=== PATIENT | female | born 1960 | race Caucasian/White ===

== ENCOUNTER 2024-11-13 11:02 | Emergency (ER) | payer MEDICARE, MEDICAID, SELFPAY ==
[2024-11-13] VITALS (10 sets, daily range): BP systolic 113–136; BP diastolic 52–72; PULSE 82–101; RESP 13–23; TEMP 35.9; O2SAT 97–100; BMI 21.8
--- OUTSIDE RECORDS SUMMARY | 2024-11-13 11:05 | XMS_ITS | Encounter Summary ---
Author Organization [facility] Address [address] [place] [address]. [place] [address] Care Team Providers Care Protection Engineer Name Role Phone Eleni Nguyen DO Primary Care Provider [phone] Gladys Luis RN Unavailable [phone] Eleni Nguyen DO Primary Care Provider [phone] Encounter Details Date Type Department Care Team (Late st Contact Info) Description 01/09/2017 [facility] [address] [address] Nette Levy MD [address] [place] [address] Social History Tobacco Use Types Packs/Day Years Used Date Smoking Tobacco: Never Smokeless Tobacco: Never Alcohol Use Standard Drinks/Week Comments No 0 (1 standard drink = 0.6 oz pur e alcohol) Comments No Sex and Gender Information Value Date Recorded Sex Assigned at Female 04/03/2019 2:35 PM DRYWALL STRIPPER HELPER Legal Sex Female 3:28 AM DRYWALL STRIPPER HELPER Gender Identity Female 04/03/2019 2:35 PM DRYWALL STRIPPER HELPER Sexual Orientation Not on file documented as of this encounter Plan of Treatment Not on file documented as of this encounter Visit Diagnoses Not on filedocumented in this encounter Care Teams Protection Engineer Relationship Specialty Start Date End Date Eleni Nguyen DO PCP - General 02/27/14 06/20/24 Eleni Nguyen DO [address] [place] [address] PCP - General Cardiovascular Disease 06/21/24 Gladys Luis, RN Registered Nurse Otolaryngology 04/07/16 documented as of this encounter
--- OUTSIDE RECORDS SUMMARY | 2024-11-13 11:05 | XMS_ITS | Encounter Summary ---
Author Organization [facility] Address [address] [place] [address]. [place] [address] Care Team Providers Care Regional Hr Manager Name Role Phone Eleni Nguyen DO Primary Care Provider [phone] Gladys Luis RN Unavailable [phone] Eleni Nguyen DO Primary Care Provider [phone] Encounter Details Date Type Department Care Team (Late st Contact Info) Description 11/05/2016 [facility] [address] [address] Nette Levy MD [address] [place] [address] Social History Tobacco Use Types Packs/Day Years Used Date Smoking Tobacco: Never Smokeless Tobacco: Never Alcohol Use Standard Drinks/Week Comments No 0 (1 standard drink = 0.6 oz pur e alcohol) Comments No Sex and Gender Information Value Date Recorded Sex Assigned at Female 04/03/2019 2:35 PM SAMPLE TAKER OPERATOR Legal Sex Female 3:28 AM SAMPLE TAKER OPERATOR Gender Identity Female 04/03/2019 2:35 PM SAMPLE TAKER OPERATOR Sexual Orientation Not on file documented as of this encounter Plan of Treatment Not on file documented as of this encounter Visit Diagnoses Not on filedocumented in this encounter Care Teams Regional Hr Manager Relationship Specialty Start Date End Date Eleni Nguyen DO PCP - General 02/27/14 06/20/24 Eleni Nguyen DO [address] [place] [address] PCP - General Cardiovascular Disease 06/21/24 Gladys Luis, RN Registered Nurse Otolaryngology 04/07/16 documented as of this encounter
--- OUTSIDE RECORDS SUMMARY | 2024-11-13 11:05 | XMS_ITS | Encounter Summary ---
Author Organization [facility] Address [address] [place] [address] Care Team Providers Care Territory Sales Executive Name Role Phone PatrickEleni zhong DO Primary Care Provider [phone] Gladys Luis RN Unavailable [phone] Eleni Nguyen DO Primary Care Provider [phone] Encounter Details Date Type Department Care Team (Late st Contact Info) Description 11/15/2016 [facility] [address] [facility] [place] [id number] [place] [address] [place] [address] Social History Tobacco Use Types Packs/Day Years Used Date Smoking Tobacco: Never Smokeless Tobacco: Never Alcohol Use Standard Drinks/Week Comments No 0 (1 standard drink = 0.6 oz pur e alcohol) Comments No Sex and Gender Information Value Date Recorded Sex Assigned at Female 04/03/2019 2:35 PM GERIATRIC NURSE Legal Sex Female 3:28 AM GERIATRIC NURSE Gender Identity Female 04/03/2019 2:35 PM GERIATRIC NURSE Sexual Orientation Not on file documented as of this encounter Plan of Treatment Not on file documented as of this encounter Visit Diagnoses Not on filedocumented in this encounter Care Teams Territory Sales Executive Relationship Specialty Start Date End Date Eleni Nguyen DO PCP - General 02/27/14 06/20/24 Eleni Nguyen DO [address] [place] [address] [place] [address] PCP - General Cardiovascular Disease 06/21/24 Gladys Luis, RN Registered Nurse Otolaryngology 04/07/16 documented as of this encounter
--- OUTSIDE RECORDS SUMMARY | 2024-11-13 11:05 | XMS_ITS | Clinical Summary ---
Author Organization [facility] Address [address] [place] [address] Care Team Providers Care An Employee Sponsor Or Advocate And Name Role Phone Popeye Medina MD Unavailable Keo Sutton MD Unavailable Eleni Nguyen DO Primary Care Provider Shauna Eli MD Unavailable Zion Rodriguez MD Unavailable Unava Felicia Garcia Unavailable [phone] Lor Barrios DO Unavailable Allergies Active Allergy Reactions Criticality Noted Date Comments Apricot *Unknown Medium 07/25/2011 Dried Apricots Aspirin Anaphylaxis High 04/21/2008 Moxifloxacin Hives Medium 04/21/2008 Cefaclor *Unknown Unknown 04/21/2008 Chicken Derived Other - Describe In Comment Field Medium 04/04/2016 Patient states this is an error. She is not allergic to chicken Certain Brand of Chicken Only [facility] *Unknown Unknown 04/21/2008 [facility] Containing Products Itching Medium 08/21/2018 Milk *Unknown Unknown 04/21/2008 Doxycycline Hives Medium 04/21/2008 Egg *Unknown Unknown 12/28/2012 Erythromycin Hives High 04/21/2008 Erythromycin Base Hives High 08/11/2004 Fd And C Red No.22 (Eosin) *Unknown Unknown 04/04/2016 Gluten *Unknown Unknown 04/21/2008 Ibuprofen Anaphylaxis High 11/09/2010 Cephalexin Hives Medium 04/21/2008 Latex Hives Medium 03/10/2010 Lidocaine Hives High 02/12/2019 Mold Runny Nose Low 04/26/2012 Other reaction(s): sinus congestion, asthma reaction Nalbuphine Anaphylaxis High 04/21/2008 Flurbiprofen *Unknown Unknown 10/04/2003 PN: LW Reaction: eyes swell Penicillins Hives High 04/21/2008 Persic Oil *Unknown Unknown 04/04/2016 Other reaction(s): *Unknown Quinolones *Unknown Unknown 04/04/2016 D And C Red No.22 *Unknown Unknown 04/21/2008 Sulfa (Sulfonamide Antibiotics) Other - Describe In Comment Field Unknown 04/21/2008 Gatifloxacin *Unknown Unknown 04/21/2008 Cefpodoxime *Unknown Unknown 04/21/2008 Wheat Flour GI Upset Medium 04/21/2008 Gluten Medications INHALANT IMMUNOTHERAPYIndi cations:Allergic rhinitis, cause unspecified Vial a mold fip Vial b mite 2 0 04/18/19 13 Active Glutamine (L-GLUTAMINE) 500 mg tab Take 1 Tab by mouth once daily. 0 01/22/20 16 Active medication order composer DSF (destress formula0 0 01/22/20 16 Active Digestive Enzymes capsule Take 1 capsule by mouth once daily. 0 01/22/20 16 Active NALTREXONE SUSPENSION 1MG/ML Take 5 mg by mouth once daily. 01/25/20 18 Active mometasone (NASONEX) (50 mcg each actuation) nasal spray Inhale 1 [place] in the nostril(s) once daily. 12/29/19 18 Active omega-3 acid ethyl esters (LOVAZA;OMACOR) 1 gram capsule Take 2 Caps by mouth. 12/29/19 13 Active ProAir HFA 90 mcg/actuation inhalerIndication s:Mild intermittent asthma without complication (HC) INHALE 1-2 PUFFS BY MOUTH EVERY 4 HOURS IF NEEDED. 25.5 Each 01/26/20 21 Active albuterol-ipratro pium (DUONEB) (2.5-0.5 mg) in 3 mL NEBULIZATION solutionIndicatio ns:Mild intermittent asthma without complication (HC) Inhale 3 mL via a nebulizer 4 times daily if needed for Shortness of Breath 1st choice. Do not fill; just have on file 360 mL 1 03/18/20 21 Active cholecalciferol, Vitamin D3, (Vitamin D-3) 5,000 unit tab tablet Take 1 Tablet (5,000 units) by mouth once daily. 0 06/18/19 22 Active ZyrTEC 10 mg tablet Take 1 Tablet (10 mg) by mouth once daily. 0 07/08/19 23 Active albuterol (PROVENTIL) 0.083 % neb solutionIndicatio ns:Asthma, unspecified asthma severity, unspecified whether complicated, unspecified whether persistent (HC) Inhale 3 mL (2.5 mg) via a nebulizer every 4 hours if needed for Shortness of Breath 1st choice. 360 mL 11 08/12/19 23 Active lancetsIndication s:Controlled type 2 diabetes mellitus without complication, without long-term current use of insulin (HC) Dispense item covered by pt ins. E11.9 NIDDM type II - Test 1 time/day. accucheck fastclix lancets 100 Each 3 09/05/19 23 Active ondansetron (ZOFRAN ODT) 4 mg disintegrating tabletIndications :Nausea Place 1 Tablet (4 mg) on the tongue every 8 hours if needed for Nausea/Vomiting. 20 Tablet 03/20/20 23 Active Ozempic 2 mg/dose (8 mg/3 mL) subcutaneous pen Inject 2 mg subcutaneous once weekly. 01/23/20 24 Active albuterol HFA (PRO-AIR; VENTOLIN; PROVENTIL) 90 mcg/actuation inhalerIndication s:Mild intermittent asthma without complication (HC) INHALE 2 PUFFS BY MOUTH FOUR TIMES DAILY NEEDED FOR SHORTNESS OF BREATH 76.5 g 2 05/16/19 25 Active blood sugar diagnostic (Accu-Chek Milagros Plus test strp) stripIndications: Controlled type 2 diabetes mellitus without complication, without long-term current use of insulin (HC),Prediabetes DIRECTED TO TEST BLOOD GLUCOSE ONCE DAILY 100 Each 3 06/26/19 25 Active EPINEPHrine (EpiPen 2-Jamey) 0.3 mg/0.3 mL auto-injectorIndi cations:Anaphylax is, sequela Inject 0.3 mg intramuscular one time if needed for Allergic Reaction. Mylan brand only. 2 Each 1 09/12/19 25 Active fluticasone propion-salmetero L (Advair HFA) 115-21 mcg/actuation inhalerIndication s:Moderate persistent asthma without complication (HC) Inhale 2 Puffs by mouth two times daily. 3 Each 3 09/12/19 25 Active LORazepam 0.5 mg tabIndications:An xiety Take 1 Tablet (0.5 mg) by mouth every 4 hours if needed for Anxiety. 30 Tablet 1 09/12/19 25 Active Tirosint 50 mcg capIndications:Ac quired hypothyroidism Take 1 tab oral on tuesdays and , Saturdays and Sundays. 48 Capsule 4 09/15/19 25 Active liothyronine 25 mcg tabletIndications :Acquired hypothyroidism TAKE 1/2 TABLET(12.5 MCG) BY MOUTH EVERY DAY 45 Tablet 09/25/19 25 Active Tirosint 75 mcg capIndications:Ac quired hypothyroidism Take 1 tab Mondays, Wednesdays,and Fridays 36 Capsule 3 10/30/19 25 Active Blood-Glucose Meter (Accu-Chek Milagros Plus Meter)Indications :Controlled type 2 diabetes mellitus without complication, without long-term current use of insulin (HC) Dispense glucose meter, test strips and lancets covered by the patient insurance. Test 1 times per day. 1 Each 11/10/19 25 Active Blood-Glucose Meter (Accu-Chek Milagros Plus Meter)Indications :Controlled type 2 diabetes mellitus without complication, without long-term current use of insulin (HC) Dispense glucose meter, test strips and lancets covered by the patient insurance. Test 1 times per day. 1 Each 09/05/19 23 025 Discontin ued(Reord er (E-cancel not sent)) Tirosint 75 mcg capIndications:Ac quired hypothyroidism Take 1 tab Mondays, Wednesdays,and Fridays 36 Capsule 4 09/15/19 25 025 Discontin ued(*Avai lability/ Formulary change/Co st of medicatio n) Active Problems Problem Noted Date Diagnosed Date Iron deficiency anemia 10/10/2024 COVID-19 virus infection 07/12/2021 Overview (07/12/2021): Dec 2020 Environmental allergies 08/20/2020 Irritable bowel syndrome with constipation 08/20 Chronic left shoulder pain 05/18/2020 Type 2 diabetes mellitus wit hout complication, without long-term current use of insulin 05/18/2020 Elevated uric acid in blood 04/22/2019 Fluid retention 09/27/2018 Chronic sinusitis 05/08/2018 Overview (12/07/2018): Overview: Added automatically from request for surgery [id number] Nasal polyp 05/08/2018 Overview (12/07/2018): Overview: Added automatically from request for surgery [id number] Infiltrate of lung present on imaging of chest 0 11/23/2015 Anxiety 11/25/2014 Leukopenia 08/27/2013 Acquired hypothyroidism 08/18/2008 Overview (09/17/2020): 06/2008 IMPAIRED INTESTINAL ABSORPTION 04/23/2008 Overview (06/05/2009): EGD 05/2008 reflux changes on biopsy Hiatal hernia 04/23/2008 ADHD (attention deficit hyperactivity disorder) 04/23/2008 Overview (06/30/2009): Updated by system to replace inactive record Asthma 11/05/2003 Uncomplicated asthma 10/08/2003 Aspirin intolerance Resolved Problems Problem Noted Date Diagnosed Date Resolved Date Acute hypoxemic respiratory failure 01/05/2021 05/06/2021 Pneumonia due to COVID-19 virus 01/05/2021 05/06/2021 COVID-19 virus infection 12/30/2020 Overview (12/30/2020): Dec 2020 Chronic cholecystitis 01/27/20202020 Leg pain, bilateral 04/22/2019 09/18/19 21 Diabetes type 2, controlled 12/28/2012 04/30/2019 Asthma with acute exacerbation 11/09/2010 08/16/2013 Borderline personality disorder 04/23/2008 03/10/2015 Thrush 04/23/2008 07/07/2008 Encounters Date Type Department Care Team Description 11/13/2024 Telephone [facility] [address] [place] [address] Eleni Nguyen, Form (diabetic standard written order) 11/05/2024 9:51 AM CDT - 11/05/2024 11:52 AM CDT Emergency [facility] [address] [place] [address] Brett Colon MD Palpitations (Primary Dx); Anemia, unspecified type; Hypoglycemia Discharge Disposition: Home Self Care 11/05/2024 Travel 10/27/2024 Refill [facility] [address] [place] [address] Shauna Eli MD Refill Request (Tirosint) 10/24/2024 11:30 AM CDT Office Visit [facility] [address] [place] [address] Shauna Eli MD Anxiety 10/24/2024 9:00 AM CDT - 10/24/2024 11:59 PM CDT Hospital Encounter [facility] [address] [place] [address] Iron deficiency anemia, unspecified iron deficiency anemia type (Primary Dx) 10/24/2024 Travel 10/22/2024 10:00 AM CDT - 10/22/2024 11:59 PM CDT Hospital Encounter [facility] [address] [place] [address] Iron deficiency anemia, unspecified iron deficiency anemia type (Primary Dx) 10/21/2024 Travel 10/16/[address] [facility] [address] [place] [address] [facility] Cancer Appointment 10/09/2024 1:40 PM CDT Office Visit [facility] [address] [place] [address] Chun Maier MD Hospital F/U (DOD 10/03/24 ) 10/09/[address] [place] [address] Eleni Nguyen DO Results (Low iron ) 10/09/2024 Travel 10/03/2024 2:31 PM CDT - 10/03/2024 4:32 PM CDT Emergency [facility] [address] [facility] [address] Deniz Pinto PA Low serum iron (Primary Dx); Iron deficiency anemia, unspecified iron deficiency anemia type Discharge Disposition: Home Self Care 10/03/2024 Travel 10/01/2024 Travel 09/30/2024 Orders Only [facility] [address] [place] [address] [address] [place] [address] Eleni Nguyen DO Lab 09/30/2024 Orders Only [facility] [address] [place] [address] Shauna Eli MD <No scans attached> 09/23/2024 Refill [facility] [address] [place] [address] Shauna Eli MD Refill Request (Liothyronine) 09/16/2024 Telephone [facility] [address] [place] [address] Eleni Nguyen DO Results 09/12/2024 11:30 AM CDT Office Visit [facility] [address] [place] [address] Shauna Eli MD Anxiety 09/11/2024 10:50 AM CDT Office Visit [facility] [address] [place] [address] Eleni Nguyen DO Diabetes; Medicare ANNUAL (subsequent) Visit 09/11/2024 Travel 09/09/2024 Travel 08/26/2024 Refill [facility] [address] [place] [address] Shauna Eli MD Refill Request (Liothyronine) from Last 3 Months Immunizations Immunization Administration Dates Next Due Hepatitis B, Unspecified 03/08/1999 Influenza, IIV3 (Age >=3 years) 02/22/20 05,02/02/2004,02/13/2003,01/26/20 02,02/14/2001,02/15/2000,02/15/1999 Influenza, IIV4 12/26/2015,01/15/2015 Tdap 08/17/2023,01/02/2012 Zoster (Shingrix-RZV, recombinant) 10/18/2019 Zoster (Zostavax-ZVL, live) 02/20/2017 Family History Medical History Relation Name Comments Good Health Brother Cancer-prostate Father Dementia Father Diabetes Father Other Father Diabetes Maternal Aunt 1 Diabetes Maternal Aunt 2 Unknown Maternal Grandfather Brain Aneurysm Maternal Grandmother Unknown Maternal Uncle 1 Unknown Maternal Uncle 2 Cancer-colon Mother Diabetes Mother Hyperlipidemia Mother Hypertension Mother Unknown Paternal Aunt estranged - un kown medical history Cervical cancer Paternal Grandfather Unknown Paternal Grandmother Relation Name Status Comments Brother Alive Father Maternal Aunt 1 Maternal Aunt 2 Maternal Grandfather Maternal Grandmother Maternal Uncle 1 Maternal Uncle 2 Mother Paternal Aunt Alive Paternal Grandfather Paternal Grandmother Social History Tobacco Use Types Packs/Day Years Used Date Smoking Tobacco: Never Smokeless Tobacco: Never Tobacco Cessation:Counseling Given: Yes Comments:Previously exposed to former 's smoke. in 1995. Alcohol Use Standard Drinks/Week Comments Never 0 (1 standard drink = 0.6 oz pur e alcohol) PHQ-2 Answer Date Recorded PHQ-2 TOTAL SCORE 0 09/11/2024 Social Connections Answer Date Recorded Frequency of Communication with Friends and Fami ly 0 07/05/2022 Financial Resource Strain Answer Date R ecorded Difficulty of Paying Living Expenses 3 07/05/2022 Difficulty of Paying Living Expenses Not on file 07/05/2022 Food Insecurity Answer Date Recorded Worried About Running Out of Food in the Last Ye ar 1 07/05/2022 Transportation Needs Answer Date Record ed Lack of Transportation (Medical) 1 07/05/2022 Housing Stability Answer Date Recorded Unable to Pay for Housing in the Last Year 1 07/05/2022 Interpersonal Safety Answer Date Record ed Are you being hit, kicked, p ushed or yelled at (see row info)? 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 Gender Identity Not on file Sexual Orientation Not on file Occupation Industry Job Start Date Job End Date DISABLED 04/17/2000 Not on file Not on file Not on fi le Obstetrics History Para Term AB IAB SAB Ectopic Multiple Livin g Live Births 0 0 0 0 0 0 0 0 0 0 Last Filed Vital Signs Vital Sign Reading Time Taken Comments Blood Pressure 130/69 11/05/2024 11:30 AM CDT Pulse 82 11/05/2024 11:30 AM CDT Temperature 36.6 C (97.9 F) 11/05/2024 9:55 AM CDT Respiratory Rate 16 11/05/2024 11:30 AM CDT Oxygen Saturation 99% 11/05/2024 11:30 AM CDT Inhaled Oxygen Concentration - - Weight 56.7 kg (125 lb) 11/05/2024 9:55 AM CDT Height 160 cm (5' 3) 11/05/2024 9:55 AM CDT Body Mass Index 22.14 11/05/2024 9:55 AM CDT Plan of Treatment Upcoming Encounters Date Type Department Care Team (Late st Contact Info) Description 11/28/2024 11:30 AM CDT Office Visit [facility] [address] [facility] [place] [address] Shauna Eli MD [address] [facility] [place] [address] 12/23/2024 11:00 AM CDT Orders Only [address] [place] [address] [facility] 01/02/2025 11:30 AM CDT Office Visit [facility] [address] [facility] [place] [address] Shauna Eli MD [address] [place] [address] 09/15/2025 10:50 AM CDT Office Visit [facility] [address] [place] [address] Eleni Nguyen DO [address] [place] [address] Health Maintenance Due Date Last Done Comments HIV for age 15-65 1977 Pneumococcal series for age 50+ (1 of 2 - PCV) 1981 Hepatitis B series for 19+ ( 2 of 3 - 19+ 3-dose series) 04/05/1999 03/08/1999 RSV vaccine for adults or (1 - Risk 60-74 years 1-dose series) 2022 COVID-19 vaccine series ( season) 2023 Influenza Vaccine (#1) 2024 6, 01/15/2015, 02/21/2005, Additional history exists Mammogram for age 45-75 06/21/2025 06/22/19, 06/09/2023, 05/27/2021 (Verified in Care Everywhere or Patient Record), Additional history exists BMI (ht and wt on same day) for age 18+ 09/11/2025 09/11/2024, 08/14/2023, 03/20/2023, Additional history exists Depression screening for age 12+ 09/11/2025 09/11/2024, 08/16/2023, 08/16/2023, Additional history exists Fecal testing non-DNA (FIT,FOBT,iFOBT) for age 45-75 09/25/2025 09/25/2024, 08/17/2023, 07/29/2021, Additional history exists Lipids for age 45-75 09/11/2029 09/11/2024, 08/14/2023, 08/11/2022, Additional history exists Tetanus booster 08/16/2033 08/17/2023, 01/02/2012 Hepatitis C screening for ag e 18-79 Completed 01/22/2016 Medical Devices Implanted Type Area Animal Caretaker Supervisor Device Identifier Shelf Expiration Date Model / Serial / Lot Spacer Stratus Frontal Microflow - [id number] Implanted:Qty: 2 on 01/05/2012 by Keo Sutton MD at [facility] Right: Nose ACCLARENT 05/18/2013 [id number] / / [id number] Description:implanted into r ight frontal Procedures Procedure Name Priority Date/Time Associated Diagnosis Comments GLUCOSE METER Routine 11/05/2024 11:44 AM CDT TYPE & SCREEN STAT 11/05/2024 10:32 AM CDT RED CELL MORPHOLOGY STAT 11/05/2024 1 0:32 AM CDT PLATELET ESTIMATE STAT 11/05/2024 10: 32 AM CDT CBC WITH AUTO DIFFERENTIAL STAT 11/05/2024 10:32 AM CDT TSH WITH REFLEX STAT 11/05/2024 10:32 AM CDT MAGNESIUM STAT 11/05/2024 10:32 AM CDT BASIC METABOLIC PANEL STAT 11/05/2024 10:32 AM CDT CBC WITH AUTO DIFFERENTIAL STAT 11/05/2024 10:32 AM CDT EKG 12 LEAD STAT 11/05/2024 9:57 AM CDT TYPE & SCREEN STAT 10/03/2024 2:45 PM CDT CWS PATH REVIEW HEMATOLOGY STAT 10/03/2024 2:45 PM CDT RED CELL MORPHOLOGY STAT 10/03/2024 2 :45 PM CDT PLATELET ESTIMATE STAT 10/03/2024 2:4 5 PM CDT BASIC METABOLIC PANEL STAT 10/03/2024 2:45 PM CDT HEMOGLOBIN STAT 10/03/2024 2:45 PM CDT HEPATIC FUNCTION PANEL Routine 10/01/2024 12:43 PM CDT Elevated liver enzymes FERRITIN Routine 10/01/2024 12:43 PM CDT Elevated liver enzymes Anemia of unknown etiology IRON PLUS IRON BINDING CAP Routine 10/01/2024 12:43 PM CDT Anemia of unknown etiology CBC WITH AUTO DIFFERENTIAL Routine 10/01/2024 12:43 PM CDT Anemia of unknown etiology OCCULT BLOOD IFOBT STOOL Routine 09/25/2024 12:00 PM CDT Screening for colon cancer URINE ALBUMIN TO CREATININE RATIO, RANDOM Routine 09/11/2024 12:12 PM CDT Controlled type 2 diabetes mellitus without complication, without long-term current use of insulin (HC) T4,FREE Routine 09/11/2024 11:20 AM CDT TSH WITH REFLEX Routine 09/11/2024 11:20 AM CDT Controlled type 2 diabetes mellitus without complication, without long-term current use of insulin (HC) LIPID PANEL W REFLEX MEASURED LDL Routine 09/11/2024 11:20 AM CDT Controlled type 2 diabetes mellitus without complication, without long-term current use of insulin (HC) CBC WITH AUTO DIFFERENTIAL Routine 09/11/2024 11:20 AM CDT Controlled type 2 diabetes mellitus without complication, without long-term current use of insulin (HC) COMP METABOLIC PANEL Routine 09/11/2024 11:20 AM CDT Controlled type 2 diabetes mellitus without complication, without long-term current use of insulin (HC) HEMOGLOBIN A1C MONITORING (POCT) STAT 09/11/2024 11:18 AM CDT Controlled type 2 diabetes mellitus without complication, without long-term current use of insulin (HC) SCAN-MAMMOGRAPHY REPORT 06/21/2024 12:00 AM VENTURE CAPITAL ANALYST ANTI HCV Routine 01/22/2016 11:28 AM CDT Need for hepatitis C screening test from Last 3 Months or Most Recently Relevant to Health Maintenance Results * (ABNORMAL) GLUCOSE METER (11/05/2024 11:44 AM CDT) [facility] GLUCOSE METER 113(H) 65 - 100 mg/dL 11/05/2024 11:44 AM T [facility] Blood BLOOD SPECIMEN / Unknown 11/05/2024 11:44 AM CDT 11/05/2024 11:44 AM CDT us Brett Colon MD CHEMISTRY Fin al Result [facility] [address] [place] [address] * (ABNORMAL) CBC WITH AUTO DIFFERENTIAL (11/05/2024 10:32 AM CDT) [facility] WHITE BLOOD COUNT 6.9 4.5 - 11.0 thou/cu mm 11/05/2024 11:22 AM [facility] RED BLOOD COUNT 4.78 4.00 - 5.20 mil/cu mm 11/05/2024 11:22 AM [facility] HEMOGLOBIN 10.3(L) 12.0 - 16.0 g/dL 11/05/2024 11:22 AM [facility] HEMATOCRIT 34.8 33.0 - 51.0 % 11/05/2024 11:22 AM [facility] MCV 73(L) 80 - 100 fL 11/05/2024 11:22 AM [facility] MCH 21.5(L) 26.0 - 34.0 pg 11/05/2024 11:22 AM [facility] MCHC 29.6(L) 32.0 - 36.0 g/dL 11/05/2024 11:22 AM [facility] RDW 11/05/2024 11:22 AM [facility] Comment:Unable to be determi carlton PLATELET COUNT 288 140 - 440 thou/cu mm 11/05/2024 11:22 AM [facility] MPV 9.1 6.5 - 11.0 fL 11/05/2024 11:22 AM [facility] % NEUT 78.5 % 11/05/2024 11:22 AM [facility] % LYMPH 14.5 % 11/05/2024 11:22 AM [facility] % MONO 6.3 % 11/05/2024 11:22 AM [facility] % EOS 0.3 % 11/05/2024 11:22 AM [facility] % BASO 0.4 % 11/05/2024 11:22 AM [facility] ABSOLUTE NEUTROPHILS 5.4 1.7 - 7.0 thou/cu mm 11/05/2024 11:22 AM [facility] ABSOLUTE LYMPHOCYTES 1.0 0.9 - 2.9 thou/cu mm 11/05/2024 11:22 AM [facility] ABSOLUTE MONOCYTES 0.4 <0.9 thou/cu mm 11/05/2024 11:22 AM [facility] ABSOLUTE EOSINOPHILS 0.0 <0.5 thou/cu mm 11/05/2024 11:22 AM [facility] ABSOLUTE BASOPHILS 0.0 <0.3 thou/cu mm 11/05/2024 11:22 AM [facility] Blood BLOOD SPECIMEN / Unknown IV Start / Unknown 11/05/2024 10:32 AM CDT 11/05/2024 10:37 AM [facility] us Brett Colon MD HEMATOLOGY Fin al Result [facility] [address] [place] [address] * (ABNORMAL) RED CELL MORPHOLOGY (11/05/2024 10:32 AM CDT) Only the most recent of2 resultswithin the time period is included. [facility] ELLIPTOCYTES Many 11/05/2024 11:22 AM CDT [facility] SCHISTOCYTES Few 11/05/2024 11:22 AM CDT [facility] TARGET CELLS Few 11/05/2024 11:22 AM CDT [facility] RBC COMMENT Present(A ) RBC morphology appears normal, RBC morphology within normal limits for newborns. 11/05/2024 11:22 AM CDT [facility] Blood BLOOD SPECIMEN / Unknown IV Start / Unknown 11/05/2024 10:32 AM CDT 11/05/2024 10:37 AM CDT Brett Colon MD HEMATOLOGY Fin al Result [facility] [address] [place] [address] * PLATELET ESTIMATE (11/05/2024 10:32 AM CDT) Only the most recent of2 resultswithin the time period is included. [facility] PLATELET ESTIMATE Adequate Adequate, No estimate 11/05/2024 11:22 AM CDT [facility] Blood BLOOD SPECIMEN / Unknown IV Start / Unknown 11/05/2024 10:32 AM CDT 11/05/2024 10:37 AM CDT Brett Colon MD HEMATOLOGY Fin al Result [facility] [address] [place] [address] * TSH WITH REFLEX (11/05/2024 10:32 AM CDT) Only the most recent of2 resultswithin the time period is included. TSH 0.35 0.27 - 4.20 uIU/mL 11/05/2024 11:06 AM CDT [facility] Blood BLOOD SPECIMEN / Unknown IV Start / Unknown 11/05/2024 10:32 AM CDT 11/05/2024 10:37 AM CDT Narrative [facility] - 11/05/2024 11:06 AM CDT In Adults, TSH values between 5.00 and 10.00 uIU/ml do not necessarily indicate the presence of Hypothyroidism. Correlation with clinical findings such as presence of goiter and/or Thyroperoxidase (TPO) Antibody may be helpful. For more information please refer to PJ 2004; 291: 228-238. Brett Colon MD CHEMISTRY Fin al Result Performing Organization Address City/[facility] Co de Phone Number [facility] [address] [place] [address] * TYPE AND SCREEN ONLY (11/05/2024 10:32 AM CDT) Only the most recent of2 resultswithin the time period is included. ABORH A Rh Positive 11/05/2024 11:07 AM CDT [facility] BLOOD BANK ANTIBODY SCREEN Negative Negative 11/05/2024 11:07 AM CDT [facility] BLOOD BANK SPECIMEN EXPIRATION DATE/TIME 11/08/24 23:59 11/05/2024 11:07 AM CDT [facility] BLOOD BANK Blood BLOOD SPECIMEN / Unknown IV Start / Unknown 11/05/2024 10:32 AM CDT 11/05/2024 10:37 AM CDT Brett Colon MD BLOOD BANK Fin al Result Performing Organization Address City/[facility]/ZIP Co de Phone Number [facility] BLOOD BANK [address] [place] [address] * MAGNESIUM (11/05/2024 10:32 AM CDT) MAGNESIUM 2.0 1.6 - 2.4 mg/dL 11/05/2024 11:06 AM [facility] Blood BLOOD SPECIMEN / Unknown IV Start / Unknown 11/05/2024 10:32 AM CDT 11/05/2024 10:37 AM CDT us Brett Colon MD CHEMISTRY Fin al Result [facility] [address] [place] [address] * (ABNORMAL) BASIC METABOLIC PANEL (11/05/2024 10:32 AM CDT) Only the most recent of2 resultswithin the time period is included. SODIUM 145 136 - 145 mmol/L 11/05/2024 11:10 AM [facility] POTASSIUM 3.6 3.5 - 5.1 mmol/L 11/05/2024 11:10 AM [facility] CHLORIDE 107 98 - 107 mmol/L 11/05/2024 11:10 AM [facility] CO2,TOTAL 25 22 - 29 mmol/L 11/05/2024 11:10 AM [facility] ANION GAP 13 5 - 18 11/05/2024 11:10 AM [facility] GLUCOSE 51(LL) 70 - 99 mg/dL 11/05/2024 11:10 AM [facility] CALCIUM 9.3 8.8 - 10.4 mg/dL 11/05/2024 11:10 AM [facility] Comment: Reference ranges for this test were updated on 02/20/2024 to reflect our healthy population more accurately. Reference range changes are not retroactively applied to results, but previous results using the same methodology can be interpreted in the context of the new reference range. BUN 14 8 - 23 mg/dL 11/05/2024 11:10 AM [facility] CREATININE 0.72 0.50 - 0.90 mg/dL 11/05/2024 11:10 AM [facility] BUN/CREAT RATIO 19 10 - 20 11:10 AM [facility] eGFR >90 >90 mL/min/1. 73m2 11/05/2024 11:10 AM CDT [facility] Comment:As of 2021, eG FR is calculated by the CKD-EPI creatinine equation without race adjustment. eGFR can be influenced by muscle mass, exercise, and diet. The reported eGFR is an estimation only and is only applicable if the renal function is stable. Blood BLOOD SPECIMEN / Unknown IV Start / Unknown 11/05/2024 10:32 AM CDT 11/05/2024 10:37 AM CDT Brett Colon MD CHEMISTRY Fin al Result Performing Organization Address City/[facility]/ZIP Co de Phone Number [facility] [address] [place] [address] * EKG 12 LEAD (11/05/2024 9:57 AM CDT) Interpretation Normal sinus rhythm Normal ECG When compared with ECG of 05-Jan-2021 14:28, No significant change was found no significant change from 01/05/21 [facility] Ventricular Rate 87 BPM [facility] NOW Atrial Rate 87 BPM [facility] NOW P-R Interval 132 ms [facility] NOW QRS Duration 84 ms [facility] NOW QT 376 ms [facility] NOW QTc 452 ms [facility] NOW P Logan 64 degrees BEYOND NOW R Logan 51 degrees BEYOND NOW T Logan 6 degrees BEYOND NOW 11/05/2024 9:57 AM CDT 11/05/2024 11:04 AM CDT Brett Colon MD EKG ORD Fin al Result [facility] [place], [place] * CWS PATH REVIEW HEMATOLOGY (10/03/2024 2:45 PM CDT) PATH COMMENT Reviewed by BB on 10/06/2024 10/06/2024 11:12 AM CDT [facility] Blood BLOOD SPECIMEN / Unknown IV Start / Unknown 10/03/2024 2:45 PM CDT 10/03/2024 2:54 PM CDT [facility]OR[facility] Fin al Result Performing Organization Address City/[facility]/ZIP Co de Phone Number [facility] [address] [place] [address], * (ABNORMAL) HEMOGLOBIN (10/03/2024 2:45 PM CDT) HEMOGLOBIN 7.1(L) 12.0 - 16.0 g/dL 10/03/2024 3:28 PM CDT [facility] MCV 64(L) 80 - 100 fL 10/03/2024 3:28 PM CDT [facility] Blood BLOOD SPECIMEN / Unknown IV Start / Unknown 10/03/2024 2:45 PM CDT 10/03/2024 2:54 PM CDT Deniz ROMERO HEMATOLOGY Fin al Result Performing Organization Address [facility]/ZIP Co de Phone Number [facility] [address] [place] [address] * (ABNORMAL) IRON PLUS IRON BINDING CAP (10/01/2024 12:43 PM CDT) IRON, TOTAL 18(L) 45 - 160 mcg/dL [facility] IRON BINDING CAPACITY 445 250 - 450 mcg/dL (calc) [facility] % SATURATION 4(L) 16 - 45 % (calc) [facility] Blood BLOOD SPECIMEN / Unknown 10/01/2024 12:43 PM CDT 10/01/2024 12:44 PM CDT Narrative [facility] - 10/02/2024 6:59 AM CDT FASTING:NO FASTING: NO Eleni Nguyen DO CHEMISTRY Final Result Performing Organization Address City/[facility]/ZIP Co de Phone Number [employer] [facility] [address] [place] [address], [employer] [facility] [address] [place] [address] * (ABNORMAL) CBC AND DIFFERENTIAL (10/01/2024 12:43 PM CDT) Only the most recent of2 resultswithin the time period is included. WHITE BLOOD CELL COUNT 4.4 3.8 - 10.8 Thousand/u L [facility] RED BLOOD CELL COUNT 3.77(L) 3.80 - 5.10 Million/uL [facility] HEMOGLOBIN 6.9(L) 11.7 - 15.5 g/dL [facility] Comment: Verified by repeat analysis. HEMATOCRIT 25.8(L) 35.0 - 45.0 % [facility] MCV 68.4(L) 80.0 - 100.0 fL [facility] MCH 18.3(L) 27.0 - 33.0 pg [facility] MCHC 26.7(L) 32.0 - 36.0 g/dL [facility] Comment: For adults, a slight decrease in the calculated MCHC value (in the range of 30 to 32 g/dL) is most likely not clinically significant; however, it should be interpreted with caution in correlation with other red cell parameters and the patient's clinical condition. RDW 16.6(H) 11.0 - 15.0 % [facility] PLATELET COUNT 421(H) 140 - 400 Thousand/u L [facility] MPV 9.4 7.5 - 12.5 fL [facility] ABSOLUTE NEUTROPHILS 2,873 1,500 - 7,800 cells/uL [facility] ABSOLUTE LYMPHOCYTES 1,144 850 - 3,900 cells/uL [facility] ABSOLUTE MONOCYTES 312 200 - 950 cells/uL [facility] ABSOLUTE EOSINOPHILS 31 15 - 500 cells/uL [facility] ABSOLUTE BASOPHILS 40 0 - 200 cells/uL [facility] NEUTROPHILS 65.3 % [facility] LYMPHOCYTES 26.0 % [facility] MONOCYTES 7.1 % [facility] EOSINOPHILS 0.7 % [facility] BASOPHILS 0.9 % [facility] CBC (INCLUDES DIFF/PLT) COMMENTS [facility] Comment: Review of peripheral smear confirms automated results. Blood BLOOD SPECIMEN / Unknown 10/01/2024 12:43 PM CDT 10/01/2024 12:44 PM CDT Narrative [facility] - 10/02/2024 6:59 AM CDT FASTING:NO FASTING: NO Eleni Nguyen DO HEMATOLOGY Final Result [facility] [address] [place] [address], [place] [phone] [facility] [address] [place] [address] * (ABNORMAL) FERRITIN (10/01/2024 12:43 PM CDT) Pathologist [facility] FERRITIN 1(L) 16 - 288 ng/mL [facility] Blood BLOOD SPECIMEN / Unknown 10/01/2024 12:43 PM CDT 10/01/2024 12:44 PM CDT Narrative [facility] - 10/02/2024 6:59 AM CDT FASTING:NO FASTING: NO us Eleni Nguyen DO CHEMISTRY Final Result [facility] [address] [place] [address], [place] [phone] [facility] [address] [place] [address] * (ABNORMAL) LIVER PANEL (HEPATIC FUNCTION PANEL) (10/01/2024 12:43 PM CDT) Pathologist [facility] PROTEIN, TOTAL 5.9(L) 6.1 - 8.1 g/dL [facility] ALBUMIN 4.0 3.6 - 5.1 g/dL [facility] GLOBULIN 1.9 1.9 - 3.7 g/dL (calc) [facility] ALBUMIN/GLOBULIN RATIO 2.1 1.0 - 2.5 (calc) [facility] BILIRUBIN, TOTAL 0.8 0.2 - 1.2 mg/dL [facility] BILIRUBIN, DIRECT 0.1 < OR = 0.2 mg/dL [facility] BILIRUBIN, INDIRECT 0.7 0.2 - 1.2 mg/dL (calc) [facility] ALKALINE PHOSPHATASE 96 37 - 153 U/L [facility] AST 25 10 - 35 U/L [facility] ALT 27 6 - 29 U/L [facility] Blood BLOOD SPECIMEN / Unknown 10/01/2024 12:43 PM CDT 10/01/2024 12:44 PM CDT Narrative [facility] - 10/02/2024 6:59 AM CDT FASTING:NO FASTING: NO Eleni Nguyen DO CHEMISTRY Final Result [facility] [employer] [facility] [address] [place] [address], [facility] [address] [place] [id number] * OCCULT BLOOD IFOBT STOOL (09/25/2024 12:00 PM CDT) [facility] Signature STOOL BLOOD ,IFOBT Negative Negative 10/02/2024 3:26 PM CDT [facility] Stool STOOL SPECIMEN / Unknown Non-Blood / Unknown 09/25/2024 12:00 PM CDT 09/30/2024 9:30 PM CDT Shauna Eli MD LABORATORY Final Result [facility] [address] [place] [address], * URINE ALBUMIN TO CREATININE RATIO, RANDOM (09/11/2024 12:12 PM CDT) ALB RAND URINE <12.0 mg/L 09/11/2024 11:15 PM CDT [facility] CREATININE,URINE 1.93 g/L 09/12/19 11:15 PM CDT [facility] ALBUMIN TO CREATININE RATIO,RAND UR 09/11/2024 11:15 PM CDT [facility] Comment:Urine Albumin below measurement range, unable to calculate. Urine URINE SPECIMEN / Unknown Non-Blood / Unknown 09/11/2024 12:12 PM CDT 09/11/2024 12:12 PM CDT Narrative [facility] - 09/11/2024 11:15 PM CDT If Albumin to Creatinine Ratio is elevated, consider the following: Elevations seen with incipient nephropathy associated with diabetes mellitus or hypertension. Stress, exercise,hematuria, and urinary tract infection may also produce elevated results. If clinically indicated, confirm with 24 Hour Albumin to Creatinine Ratio. us Eleni Nguyen DO URINE Final Result [facility] [address] [place] [address], * (ABNORMAL) LIPID PANEL W REFLEX MEASURED LDL (09/11/2024 11:20 AM CDT) CHOLESTEROL, TOTAL 173 <200 mg/dL [facility] HDL CHOLESTEROL 51 > OR = 50 mg/dL [facility] TRIGLYCERIDES 71 <150 mg/dL [facility] LDL-CHOLESTEROL 106(H) mg/dL (calc) [facility] Comment: Reference range: <100 Desirable range <100 mg/dL for primary prevention; <70 mg/dL for patients with CHD or diabetic patients with > or = 2 CHD risk factors. LDL-C is now calculated using the Lena calculation, which is a validated novel method providing better accuracy than the Friedewald equation in the estimation of LDL-C. Roman FRANK et al. PJ. 2013;310(19): 7623-4741 (http://education.Getui/faq/NZW642) CHOL/HDLC RATIO 3.4 <5.0 (calc) [facility] NON HDL CHOLESTEROL 122 <130 mg/dL (calc) [facility] Comment: For patients with diabetes plus 1 major ASCVD risk factor, treating to a non-HDL-C goal of <100 mg/dL (LDL-C of <70 mg/dL) is considered a therapeutic option. Blood BLOOD SPECIMEN / Unknown 09/11/2024 11:20 AM CDT 09/11/2024 11:20 AM CDT Narrative [facility] - 09/12/2024 3:07 AM CDT FASTING:YES FASTING: YES us Eleni Nguyen DO CHEMISTRY Final Result Performing Organization Address [facility] Co de Phone Number [employer] [place] [address] [place] [address], [facility] [address] [place] [address] * T4,FREE (09/11/2024 11:20 AM CDT) Pathologist [facility] T4, FREE 1.0 0.8 - 1.8 ng/dL [facility] 09/11/2024 11:2 0 AM CDT 09/11/2024 11:20 AM CDT Narrative [facility] - 09/12/2024 6:34 AM CDT FASTING:YES FASTING: YES us Eleni Nguyen DO CHEMISTRY Final Result Performing Organization Address [facility]/ZIP Co de Phone Number [employer] [facility] [address] [place] [address], [facility] [address] [place] [address] * (ABNORMAL) COMP METABOLIC PANEL (09/11/2024 11:20 AM CDT) GLUCOSE 88 65 - 99 mg/dL [facility] Comment: Fasting reference interval UREA NITROGEN (BUN) 15 7 - 25 mg/dL [facility] CREATININE 0.70 0.50 - 1.05 mg/dL [facility] EGFR 98 > OR = 60 mL/min/1. 73m2 [facility] BUN/CREATININE RATIO SEE NOTE: 6 - 22 (calc) [facility] Comment: Not Reported: BUN and Creatinine are within reference range. SODIUM 141 135 - 146 mmol/L [facility] POTASSIUM 4.9 3.5 - 5.3 mmol/L [facility] CHLORIDE 105 98 - 110 mmol/L [facility] CARBON DIOXIDE 28 20 - 32 mmol/L [facility] CALCIUM 9.1 8.6 - 10.4 mg/dL [facility] PROTEIN, TOTAL 6.5 6.1 - 8.1 g/dL [facility] ALBUMIN 4.2 3.6 - 5.1 g/dL [facility] GLOBULIN 2.3 1.9 - 3.7 g/dL (calc) [facility] ALBUMIN/GLOBULIN RATIO 1.8 1.0 - 2.5 (calc) [facility] BILIRUBIN, TOTAL 0.8 0.2 - 1.2 mg/dL [facility] ALKALINE PHOSPHATASE 101 37 - 153 U/L [facility] AST 51(H) 10 - 35 U/L [facility] ALT 40(H) 6 - 29 U/L [facility] Blood BLOOD SPECIMEN / Unknown 09/11/2024 11:20 AM CDT 09/11/2024 11:20 AM CDT Narrative [facility] - 09/12/2024 3:07 AM CDT FASTING:YES FASTING: YES us Eleni Nguyen DO CHEMISTRY Final Result [employer] [facility] [address] [place] [address], [facility] [address] [place] [address] * STAT Hemoglobin A1C (09/11/2024 11:18 AM CDT) [facility] HEMOGLOBIN A1C MONITORING (POCT) 5.5 <=6.4 % 09/11/2024 12:00 PM CDT [facility] Blood BLOOD SPECIMEN / Unknown [facility] / Unknown 09/11/2024 11:18 AM CDT 09/11/2024 11:18 AM CDT Narrative [facility] - 09/11/2024 12:00 PM CDT (<=6.9%) Indicates good control (7.0% to 7.9%) Indicates fair control (>=8.0%) Indicates poor control NOTE: These thresholds are guidelines and individual targets may vary. Falsely low levels may be seen with: Recent Transfusion, Recent Significant Blood Loss, Hemolytic Diseases, or Falsely elevated levels may be seen with: Untreated Anemias, Splenectomy us Eleni Nguyen DO CHEMISTRY Final Result [facility] [address] [place] [address] * SCAN-MAMMOGRAPHY REPORT (06/21/2024 12:00 AM [employer] CAPITAL ANALYST) Anatomical Region Laterality Modality Other us Scanner OTHER Final Result * ANTI HCV [[id number]] (01/22/2016 11:28 AM CDT) [facility] HEPATITIS C ANTIBODY Non-Reacti ve Non-Reacti ve 01/22/2016 8:10 PM CDT [facility] Blood BLOOD SPECIMEN / Unknown Add On / Unknown 01/22/2016 11:28 AM CDT 01/22/2016 12:25 PM CDT Narrative [facility] - 01/22/2016 8:10 PM CDT Antibodies to HCV not detected; does not exclude the possibility of exposure to HCV. us Eleni Nguyen DO SEND OUTS Final Result [facility] [address] [place] [address], [place] from Last 3 Months or Most Recently Relevant to Health Maintenance Insurance MEDICARE PART B HB ONLY MEDICAID MEDICARE PART A HB ONLY MEDICARE PB ONLY MEDICARE PART B HB ONLY MEDICAID MEDICARE PART A HB ONLY Advance Directives * Full Code (Latest Code Status on File) Date Activated Date Inactivated Comments 01/05/2021 6:19 PM 01/07/2021 8:28 PM Question Answer Comments Code Status Discussion: Not Discussed * Full Code Date Activated Date Inactivated Comments 02/05/2020 6:28 AM 02/05/2020 2:17 PM Question Answer Comments Code Status Discussion: Discussed * Full Code Date Activated Date Inactivated Comments 01/05/2012 7:12 AM 01/06/2012 2:01 PM * Full Code Date Activated Date Inactivated Comments 11/09/2010 11:01 PM 11/10/2010 5:11 PM Care Teams An Employee Sponsor Or Advocate And Relationship Specialty Start Date End Date Eleni Nguyen DO [address] [facility] [place] [id number] PCP - General Internal Medicine 02/20/19 Popeye Medina MD [address] [place] [address] Consulting Physician Allergy and Immunology 04/18/12 Keo Sutton MD [address] [place] [address] Otolaryngology Surgery - Otolaryngology 12/28/12 Shauna Eli MD [address] [place] [address] Family Practice 02/13/23 Zion Rodriguez MD Dermatology 02/13/23 Felicia Paredes PA [address] [place] [phone] Surgery - Otolaryngology 02/13/23 Lor Barrios DO [address] [facility] [address] [place] [address] Pulmonary Medicine 02/13/23
--- OUTSIDE RECORDS SUMMARY | 2024-11-13 11:05 | XMS_ITS | Clinical Summary ---
Author Organization [facility] Address [address] [place] [address] Care Team Providers Care Retort Load Expediter Name Role Phone MckinleyGladys smith Allegra RN Unavailable [phone] Eleni Nguyen DO Primary Care Provider [phone] Allergies Active Allergy Reactions Criticality Noted Date Comments Aspirin Anaphylaxis High 04/04/2016 Cefaclor 04/04/2016 Cefpodoxime 04/04/2016 Cephalexin 04/04/2016 Chicken-Derived Products (Egg) Other (See Comments) 04/04/2016 [place] Oil 04/04/2016 [place]-Containing Products Itching Doxycycline 04/04/2016 Erythromycin 04/04/2016 Flour Nausea 04/04/2016 Gluten Flurbiprofen 04/04/2016 Gatifloxacin 04/04/2016 Gluten Meal 04/04/2016 Ibuprofen Anaphylaxis High 04/04/2016 Latex 04/04/2016 Milk (Cow) 04/04/2016 Moxifloxacin 04/21/2008 Nalbuphine 04/04/2016 Penicillins 04/04/2016 Prunus 04/04/2016 Other reaction(s): *Unknown Quinolones 04/04/2016 Red Dye #22 (Eosine) 04/04/2016 Sulfa Antibiotics 04/04/2016 Medications albuterol (2.5 MG/3ML) 0.083% neb solution Inhale 2.5 mg into the lungs 6 Active albuterol (PROAIR HFA/PROVENTIL HFA/VENTOLIN HFA) 108 (90 BASE) MCG/ACT Inhaler Inhale 2 puffs into the lungs 6 Active ipratropium - albuterol 0.5 mg/2.5 mg/3 mL (DUONEB) 0.5-2.5 (3) MG/3ML neb solution Inhale 3 mLs into the lungs 5 Active blood glucose monitoring (TRUETEST) test strip 6 Active calcium citrate 250 MG TABS Take 500 mg by mouth 6 Active Probiotic Product (PROBIOTIC & ACIDOPHILUS EX ST PO) Take 1 capsule by mouth 6 Active EPINEPHrine (EPIPEN 2-NURY) 0.3 MG/0.3ML injection Inject 0.3 mg into the muscle 6 Active L-Glutamine 500 MG TABS 6 Active LORazepam (ATIVAN) 0.5 MG tablet Take 0.5 mg by mouth 6 Active mometasone (NASONEX) 50 MCG/ACT spray 2 sprays 3 Active montelukast (SINGULAIR) 10 MG tablet Take 10 mg by mouth 6 Active Thyroid 65 MG TABS Take 65 mg by mouth 6 Active cholecalciferol (VITAMIN D3) 1000 UNIT tablet 9 Active fish oil-omega-3 fatty acids 1000 MG capsule Take 2 capsules by mouth 3 Active FUROSEMIDE POIndications:fo r one week Take 20 mg by mouth daily Active Active Problems Problem Noted Date Diagnosed Date Other chronic sinusitis 02/16/2017 Idiopathic urticaria 02/16/2017 Moderate persistent asthma, uncomplicated 2016 Recurrent sinusitis 05/16/2016 Assessment & Plan (05/16/2016 10:54 PM ACCOUNT COORDINATOR): I will have Ms. Valdez undergo a bone scan to see if she has evidence of underlying bone involvement given the chronicity of her symptoms. She certainly is at risk given her abnormal anatomy with her numerous surgeries. I advised that when she follows up with Dr. Godfrey that she reculture the sinuses to see if it is the same organisms. Based on these results, we will plan treatment and follow up. 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 Family History Medical History Relation Comments Dementia Father Stomach Problem Father Asthma Mother Cancer Mother Cerebrovascular Disease Mother Dementia Mother Diabetes Mother Hypertension Mother Stomach Problem Mother Relation Status Comments Father Mother Social History Tobacco Use Types Packs/Day Years Used Date Smoking Tobacco: Never Smokeless Tobacco: Never Tobacco Cessation:Counseling Given: No Alcohol Use Standard Drinks/Week Comments No 0 (1 standard drink = 0.6 oz pur e alcohol) PHQ-2 Answer Date Recorded PHQ-2 Score 0 04/24/2018 Adolescent Education Answer Date Record ed Getting School Help Needed Not on file 01/15 Comments No Sex and Gender Information Value Date Recorded Sex Assigned at Female 04/03/2019 2:35 PM ACCOUNT COORDINATOR Legal Sex Female 3:28 AM ACCOUNT COORDINATOR Gender Identity Female 04/03/2019 2:35 PM ACCOUNT COORDINATOR Sexual Orientation Not on file Last Filed Vital Signs Vital Sign Reading Time Taken Comments Blood Pressure 99/67 10/04/2017 10:24 AM CDT Pulse 91 10/04/2017 10:24 AM CDT Temperature 37 C (98.6 F) 10/04/2017 10:24 AM CDT Respiratory Rate 16 10/04/2017 10:24 AM CDT Oxygen Saturation 98% 09/07/2017 1:00 PM CDT Inhaled Oxygen Concentration - - Weight 51 kg (112 lb 6 oz) 03/22/2017 9:52 AM CS T Height 160 cm (5' 3) 05/12/2016 10:45 AM ACCOUNT COORDINATOR Body Mass Index 19.91 05/12/2016 10:45 AM ACCOUNT COORDINATOR Plan of Treatment Health Maintenance Due Date Last Done Comments ADVANCE CARE PLANNING 1960 ANNUAL REVIEW OF HM ORDERS 1962 ASTHMA ACTION PLAN 1962 ASTHMA CONTROL TEST 1962 CT COLONOGRAPHY 1962 FLEX SIG 1962 TSH W/FREE T4 REFLEX 1962 sDNA (Cologuard) 1962 COVID-19 VACCINE (#1) 09/21/1967 COLONOSCOPY 1972 HIV SCREENING 1977 PNEUMOCOCCAL VACCINE 50+ YEARS (1 of 2 - PCV) 1981 PAP 09/21/1983 LIPID 2002 DIABETES SCREENING 04/28/2019 04/28/2016 ZOSTER VACCINE (2 of 2) 12/13/2019 10/18/2019, 02/20 RSV VACCINE (1 - Risk 60-74 years 1-dose series) 2022 PHQ-2 (once per calendar year) 2024 04/28/2016 MEDICARE ANNUAL WELLNESS VISIT 08/13/2024 08/14/2023, 08/11/2022, 07/12/2021, Additional history exists COLORECTAL CANCER SCREENING 08/16/2024 FIT 08/16/2024 08/17/2023 INFLUENZA VACCINE (#1) 2024 6, 01/15/2015, 02/21/2005, Additional history exists MAMMO SCREENING 06/21/2026 06/21/2024, 05/19, 05/31/2022, Additional history exists DTAP/TDAP/TD VACCINE (3 - Td or Tdap) 08/16/2033 08/17/2023, 01/02/2012 HEPATITIS C SCREENING Completed 01/22/2016 HPV VACCINE (No Doses Required) Completed MENINGITIS VACCINE Aged Out No longer eligible based on patient's age to complete this topic Procedures Procedure Name Priority Date/Time Associated Diagnosis Comments MA SCREENING BILATERAL W/ NÉSTOR Routine 06/21/2024 2:39 PM ACCOUNT COORDINATOR Visit for screening mammogram COMPREHENSIVE METABOLIC PANEL Routine 04/28/2016 3:30 PM ACCOUNT COORDINATOR Immunoglobulin G deficiency (H) from Last 3 Months or Most Recently Relevant to Health Maintenance Results * MA Screening Bilateral w/ Néstor (06/21/2024 2:39 PM ACCOUNT COORDINATOR) Anatomical Region Laterality Modality Breast Bilateral Mammography Impressions 06/24/2024 7:14 AM CDT IMPRESSION: ACR BI-RADS Category 1: Negative BREAST CANCER SCREENING RECOMMENDATION: Routine yearly mammography beginning at age 40 or as discussed with your provider. The results and recommendations of this examination will be communicated to the patient. Robin Martinez MD Narrative 06/24/2024 7:14 AM CDT BILATERAL FULL FIELD DIGITAL SCREENING MAMMOGRAM WITH TOMOSYNTHESIS Performed on: 06/21/24 Compared to: 06/09/2023, 05/31/2022, 05/27/2021, and 05/08/2020 Technique: This study was evaluated with the assistance of Computer-Aided Detection. Breast Tomosynthesis was used in interpretation. Findings: The breasts are heterogeneously dense, which may obscure small masses. There is no radiographic evidence of malignancy. us Eleni Julien Patrick DO IMG MAMMOGRAPHY ORDERABLES Yoselyn julien Result * (ABNORMAL) Comprehensive metabolic panel (04/28/2016 3:30 PM ACCOUNT COORDINATOR) Sodium 141 133 - 144 mmol/L [facility] Potassium 3.7 3.4 - 5.3 mmol/L [facility] Chloride 104 94 - 109 mmol/L [facility] Carbon Dioxide 29 20 - 32 mmol/L [facility] Anion Gap 8 3 - 14 mmol/L [facility] Glucose 86 70 - 99 mg/dL [facility] Urea Nitrogen 20 7 - 30 mg/dL [facility] Creatinine 0.72 0.52 - 1.04 mg/dL [facility] GFR Estimate 85 >60 mL/min/1. 7m2 [facility] Comment:Non GFR Calc GFR Estimate If Black >90 GFR Calc >60 mL/min/1. 7m2 [facility] Calcium 8.8 8.5 - 10.1 mg/dL [facility] Bilirubin Total 0.7 0.2 - 1.3 mg/dL [facility] Albumin 3.9 3.4 - 5.0 g/dL [facility] Protein Total 7.4 6.8 - 8.8 g/dL [facility] Alkaline Phosphatase 113 40 - 150 U/L [facility] ALT 64(H) 0 - 50 U/L [facility] AST 43 0 - 45 U/L [facility] Blood specimen (specimen) 04/28/2016 3:30 PM ACCOUNT COORDINATOR 04/28/2016 3:40 PM ACCOUNT COORDINATOR us Angela Almonte MD LAB - BLOOD ORDERABLE S Final Result [facility] [address] [place], [place] [address] [phone] from Last 3 Months or Most Recently Relevant to Health Maintenance Insurance [place]IC[place] Care Teams Retort Load Expediter Relationship Specialty Start Date End Date Eleni Nguyen DO [address] [place], [place] [address] [address] PCP - General Cardiovascular Disease 06/21/24 Gladys Luis, RN Registered Nurse Otolaryngology 04/07/16
--- OUTSIDE RECORDS SUMMARY | 2024-11-13 11:05 | XMS_ITS | Clinical Summary ---
Author Organization [facility] Address [address] [place] [address] Care Team Providers Care Web Art Director Name Role Phone Kitty Land MD Primary Care Provider Source Comments You are receiving this document as you are listed as the primary care provider,follow-up provider, or the patient has been referred to you for consultation.This is in compliance with the Medicare and[facility] Cent[facility]aid EHR Incentive Program,which states Providers who transition their patient to another setting of careor provider of care or refers their patient to another provider of care shouldprovide summary care record for each transition of care or referral. [employer] Allergies Active Allergy Reactions Criticality Noted Date Comments Aspirin 10/04/2003 PN: LW Reaction: ANAPHYLAXIS Cefpodoxime 10/04/2003 PN: LW Reaction: ANAPHYLAXIS Cephalosporins 10/04/2003 PN: LW Reaction: HIVES Doxycycline 10/04/2003 PN: LW Reaction: HIVES Erythromycin 10/04/2003 PN: LW Reaction: Rash, Generalized Flurbiprofen 10/04/2003 PN: LW Reaction: eyes swell Latex 10/06/2003 PN: LW Reaction: Rash, Generalized Nalbuphine 10/04/2003 PN: LW Reaction: HIVES Other 12/10/2004 PN: LW Other1: -red dye-hives, tequin-hives, avelox-hives, keflex-hives Penicillins 10/04/2003 PN: LW Reaction: HIVES Review Contrast Media 12/10/2004 PN: LW CM1: >>> NO CONTRAST ADVERSE REACTION <<< Reaction : Review Food Intolerance 10/04/2003 PN: LW FI1: corn allergy see list in NFS Sulfa Antibiotics 10/04/2003 PN: LW Reaction: Rash, Generalized Medications No known medications Active Problems No known active problems Social History Tobacco Use Types Packs/Day Years Used Date Smoking Tobacco: Never Smokeless Tobacco: Never Comments Unknown Sex and Gender Information Value Date Recorded Sex Assigned at Not on file Legal Sex Female 8:36 PM CDT Gender Identity Not on file Sexual Orientation Not on file Plan of Treatment Health Maintenance Due Date Last Done Comments Cervical Cancer Screening Due 1960 Colon Cancer Screening Plan Due 1962 Hep C Screening (Preventive Services) 1962 Medicare Annual Wellness Visit 1962 Mammogram 1962 HIV Screening (Preventive Services) 1978 Cholesterol 09/21/2007 Pneumococcal Vaccine 50+ Yrs (1 of 1 - PCV) 2012 Zoster/Shingles Vaccine (3 of 3) 12/13/2019 10/18/2019, 02/20/2017 DTaP/Tdap/Td Vaccine (2 - Tdap) 01/01/2022 01/02/2012 COVID-19 Vaccine (1 - season) 2023 Influenza Vaccine (#1) 2024 6, 01/15/2015, 02/21/2005, Additional history exists RSV Vaccine (1 - 1-dose 75+ series) 2037 HepA Vaccine Aged Out No longer eligi ble based on patient's age to complete this topic HepB Vaccine Aged Out No longer eligi ble based on patient's age to complete this topic Hib Vaccine Aged Out No longer eligi ble based on patient's age to complete this topic IPV (Polio) Vaccine Aged Out No longe r eligible based on patient's age to complete this topic MCV4 Vaccine Aged Out No longer eligi ble based on patient's age to complete this topic Meningococcal B Vaccine Aged Out No l onger eligible based on patient's age to complete this topic Insurance [id number] [facility] [address] [place] [address] MED[place] [id number] [facility] [place] [address] [place] [address] [place] Care Teams Web Art Director Relationship Specialty Start Date End Date Kitty Land MD [address] [place] [address] PCP - General 08/24/15
--- OUTSIDE RECORDS SUMMARY | 2024-11-13 11:05 | XMS_ITS | Patient Health Record ---
Author Organization [facility] Address [address] [place] [address] [address] [place] [address] Care Team Providers Care Fiberglass Container Winding Operator Name Role Phone Renee Daugherty Primary Care Provider Allergies Allergen (clinical drug ingredient) Drug/Non Drug Allergy documented on EMR Reaction Allergy Type Onset Date Status aspirin Aspirin (uncoded) swelling throat Allergy Active moxifloxacin Avelox (uncoded) Hives Allergy Active Ceclor (uncoded) Hives Allergy Act greg [place], dairy, gluten, wheat (uncoded) Hives, GI distress Allergy Active doxycycline Doxycycline (uncoded) swelling throat Allergy Active Erythyromycin (uncoded) swelling throat Allergy Active Ibuprofen (uncoded) throat swelling Allergy Active Keflex (uncoded) Hives Allergy Act greg Latex Latex (uncoded) Hives Allergy Acti ve Nubain (uncoded) facial swelling Allergy Active Ocufen (uncoded) Eye swelling Allergy Active Penicillin (uncoded) Hives Allergy Active Red Dye (uncoded) Hives Allergy Ac tive Sulfa (uncoded) Hives Allergy Acti ve Tequin (uncoded) Hives Allergy Act greg Vantin (uncoded) Hives Allergy Act greg montelukast Singulair depression Drug Allergy Acti ve Reason For Referral No Information Medications Medication SIG (Take, Route, Frequency, Duration) Notes Start Date End Date Status Spiriva 18 mcg 1 cap(s) inhaled onc e a day for 30 day(s) Not-Taking Naltrexone 2 mg 1 capsule orally BID 01/22/2018 Active Liposomal Vitamin C 1000 mg 2-3 tabs daily Active Lasix 20 mg 1 tab(s) orally once a day Active Nasonex 50 mcg/inh 2 spray(s) intranasa lly once a day Active Betaine HCl 650 mg 1 tab orally TID wit h meals Active LORazepam 0.5 mg 1 tab(s) orally BID prn Active Vitamin D3 5000 intl units 1 cap(s) orally once a day for 30 day(s) Active DSF 1 tab daily Active Probiotic 1 oral daily Active Flonase 50 mcg/inh 2 sprays intranasall y once a day for 30 day(s) Not-Taking digestive enzyme 1 tab each meal Active Singulair 10 mg 1 tab(s) orally once a day for 30 day(s) Not-Taking fish oil 1000 mg 2 caps po twice daily Active albuterol 2.5 mg/3 mL (0.083%) 3 mL by nebulizer prn for 30 day(s) Active Westhroid 1 grain 1 tab(s) orally once a day for 30 day(s) Active albuterol-ipratropium 2.5 mg-0.5 mg/3 mL 3 mL by nebulizer prn for 30 day(s) Active ProAir HFA 90 mcg/inh 2 puff(s) inhaled prn for 30 day(s) Active Advair Diskus 500 mcg-50 mcg 1 puff(s) inhaled 2 times a day for 30 day(s) Active HydrOXYzine Hydrochloride hydrochloride 25 mg 1 tab(s) orally 4 times a day PRN anxiety for 30 days 11/06/2017 Active Social History Tobacco Use: Social History Observation Description Date Details (start date - stop date) Never Smoker NA - NA Tobacco assessment Question Answer Notes Are you a: never smoker Plan Of Treatment No Information Insurance Providers Payer Name Payer Address Payer Phone Subscriber Number Group Number Insured Name Patient Relationship to Insured Coverage Start Date Coverage End Date Medicare [employer] [address] [place] [address] [id number] Sandy Valdez Self - [facility] the insured [facility] [address] [address] [place] [address] [phone] [id number] Sandy Valdez Self - patient is the insured Medical (General) History Surgical History Surgery Date(Month/Year) Sinus surgery x [phone] Hysterectomy; ovaries intact 2001 Bilateral cataract extraction 2000 Right breast Biopsy 2009
--- OUTSIDE RECORDS SUMMARY | 2024-11-13 11:05 | XMS_ITS | Continuity of Care Document ---
Author Organization [facility] Address [address], [address] [place] [address] Phone [phone] Care Team Providers Care Carbon Blocks Press Operator Name Role Phone Oscar Bennett MD Care Team Information Receiv er Unavailable Problems Active Problems Provider Date Irritable bowel syndrome angeline racterized by constipation Oscar Bennett MD Onset: 06/19/2020 Malaise and fatigue Oscar Bennett MD Onset: 0 06/19/2020 Social History Type Date Description Comments Sex Female Sex Unknown Tobacco Use Start: Unknown Patient has never smoked Allergies and adverse reactions Active Allergies Criticality Reaction Severity Comments Date Aspirin Unable to assess criticality throat swelling Ibuprofen Unable to assess criticality throat swelling Avelox Unable to assess criticality Hives Ceclor Unable to assess criticality Hives Doxycycline Unable to assess criticality Hives Erythromycin Unable to assess criticality Hives Keflex Unable to assess criticality Hives Nubain Unable to assess criticality Facial swelling Tequin Unable to assess criticality Hives Vantin Unable to assess criticality Hives Penicillin Unable to assess criticality Hives Latex Unable to assess criticality Hives Red Dye Unable to assess criticality Hives Ocufen Unable to assess criticality Swelling of eyelid [place] Unable to assess criticality Hives, Wheezing Severe 06/19/2020 Dairy Unable to assess criticality Sinus congestion. Moderate 06/19/2020 Gluten Unable to assess criticality Gluten Severe 06/19/2020 Wheat Unable to assess criticality Intestinal discomfort Severe 06/19/2020 Medications Active Medications SIG Qnty Indications Order ing Provider Date Iodine Strong5% Solution 3 drops daily under the tongue or dissolved in 4-8 ounces of water, Gladys Marisol natalie from [facility].. E01.8 Oscar Bennett MD 07/03/2020 [id number] /ML Solution 1 cubic centimeters every month, clinic administered. E53.8 Oscar Bennett MD 07/03/2020 Methyfolate 1000 mcg 2 tablets daily in the morning for folate supplementation. Please get OTC [facility] or similar site E53.8 Oscar Bennett MD 07/03/2020 [id number] Tablets OTC, 1 tab by mouth every morning with vitamin c supplement and from dairy by at least 1-2 hours. E61.1 Oscar Bennett MD 07/03/2020 Vitamin [id number] Tablets 1 tablet in the morning when your iron supplement. take on an empty stomach, do not take within 2 hours of dairy E61.1 Oscar Bennett MD 07/03/2020 Calcium + D + [id number] Tablets 1 tablet twice a day with meals for bone and breast health. E55.9 Oscar Bennett MD 07/03/2020 GNP Czah07cu Tablets Take half tablet by mouth daily for nutritional support [employer] brand E61.1 Oscar Bennett MD 07/03/2020 Vitamin D3 Ultra Potency1.25mg (76169 Ut) Tablets 1 cap by 3 times a week for 1.5 weeks; take with fat-rich food 5tabs E55.9 Oscar Bennett MD 07/03/2020 Vitamin D3 Maximum Sahusedr547tyh (5000 Ut) Capsules 2 capsules by mouth every day with fatty meal starting on 14 July 2020. E55.9 Oscar Bennett MD 06/19/2020 Fish [id number] Capsules 1 cap by mouth every day after meals Unknown Naltrexone 5 MG 1 tab by mouth every day every evening at 9 PM. Unknown Ipratropium Kennedy/Albuterol Sulfate0.5-2.5(3)mg/3 ML Solution 1 tube as needed Oscar Bennett MD [id number] Capsules 1 tab by mouth every day every morning Oscar Bennett MD Hydroxyzine VHU24er Tablets 1 tab by mouth as needed Oscar Bennett MD Lorazepam0.5mg Tablets 1 tab by mouth as needed Oscar Bennett MD Pantoprazole Kbbkwr25yg Tablets DR 1 tab by mouth every day every morning Oscar Bennett MD Fwrufixz59pjt Capsules 1 tab by mouth Tu, Thurs Oscar Bennett MD Ofknixew24erh Capsules 1 tab by mouth Mon, Mon, Frid, Sat, Sun Oscar Bennett MD Dfxswyh52xfb/Act Suspension 2 sprays each nostril once a day Oscar Bennett MD Proair BQI555(90Base) mcg/Act Aerosol 2 puffs prn Oscar Bennett MD Advair Kimfga032-08res/Dose Aerosol 1 puff twice a day Oscar vasques MD Medications Administered in Office Medication SIG Qnty Indications Ordering Provider Date Injection Vitamin B-12 Cyanocobalamin To 1000 mcg (Charge)Injection Oscar Bennett MD Therapeutic, Prophylactic Or Diagnostic Injection Subq/ImInjection Oscar Bennett MD 06/15 Vital Signs Date Vital Result Comment 07/03/2020 10:22am Height 61.5 inches 5'1.50 Weight 161.00 lb BMI (Body Mass Index) 29.9 kg/m2 BP Systolic 136 mmHg BP Diastolic 78 mmHg Heart Rate 89 /min Respiratory Rate 16 /min Body Temperature 97.9 F Results Test Acquired Date Facility Test Result H/L Range Note Vitamin C 06/19/2020 [facility] Vitamin C 1.1 mg/dL 0.3-2.7 1 Enhanced PDF Report [id number] 06/19/2020 [facility] Enhanced PDF Report [id number] SEE IMAGE Clinical PDF Report [id number] 06/19/2020 [facility] Clinical PDF Report [id number] SEE IMAGE Lipid Panel, Standard 06/19/2020 [facility] Cholesterol, Total 198 mg/dL Normal <200 HDL Cholesterol 59 mg/dL Normal > Or = 50 Triglycerides 67 mg/dL Normal <150 LDL-Cholesterol 123 mg/dL(calc) High 2 Chol/HDLC Ratio 3.4 (calc) Normal <5.0 Non HDL Cholesterol 139 mg/dL(calc) High <130 3 T4, Free 06/19/2020 [facility] T4, Free 1.2 ng/dL Normal 0.8-1.8 T3, Free 06/19/2020 [facility] T3, Free 3.6 pg/mL Normal 2.3-4.2 TSH 06/19/2020 [facility] TSH 0.47 mIU/L Normal 0.40-4. 50 Zinc 06/19/2020 [facility] Zinc 69 g/dL Normal 60-130 4 Iodine, Serum/Plasma 06/19/2020 [facility] Iodine, Serum/Plasma 51 g/L Low 52-109 5 CBC (Includes Diff/PLT) 06/19/2020 [facility] White Blood Cell Count 5.2 Thousand/uL Normal 3.8-10. 8 Red Blood Cell Count 4.75 Million/uL Normal 3.80-5. 10 Hemoglobin 12.2 g/dL Normal 11.7-15 .5 Hematocrit 37.1 % Normal 35.0-45 .0 MCV 78.1 fL Low 80.0-10 0.0 MCH 25.7 pg Low 27.0-33 .0 MCHC 32.9 g/dL Normal 32.0-36 .0 RDW 13.0 % Normal 11.0-15 .0 Platelet Count 284 Thousand/uL Normal 140-400 MPV 9.5 fL Normal 7.5-12. 5 Absolute Neutrophils 3666 cells/uL Normal 1500-78 00 Absolute Band Neutrophils DNR cells/uL Normal 0-750 Absolute Metamyelocytes DNR cells/uL Normal 0 Absolute Myelocytes DNR cells/uL Normal 0 Absolute Promyelocytes DNR cells/uL Normal 0 Absolute Lymphocytes 931 cells/uL Normal 850-390 0 Absolute Monocytes 411 cells/uL Normal 200-950 Absolute Eosinophils 161 cells/uL Normal 15-500 Absolute Basophils 31 cells/uL Normal 0-200 Absolute Blasts DNR cells/uL Normal 0 Absolute Nucleated RBC DNR cells/uL Normal 0 Neutrophils 70.5 % Normal Band Neutrophils DNR % Normal Metamyelocytes DNR % Normal Myelocytes DNR % Normal Promyelocytes DNR % Normal Lymphocytes 17.9 % Normal Reactive Lymphocytes DNR % Normal 0-10 Monocytes 7.9 % Normal Eosinophils 3.1 % Normal Basophils 0.6 % Normal Blasts DNR % Normal Nucleated RBC DNR /100WBC Normal 0 Comment(S) DNR Normal Vitamin D,25-Oh,Total,Ia 06/19/2020 [facility] Vitamin D,25-Oh,Total,Ia 42 ng/mL Normal 30-100 6 Vitamin B2 (Riboflavin), Plasma 06/19/2020 [facility] Vitamin B2 (Riboflavin), Plasma 88.7 nmol/L High 6.2-39. 0 7 Vitamin B12/Folate, Serum Panel 06/19/2020 [facility] Vitamin B12 976 pg/mL Normal 200-110 0 Folate, Serum 12.9 ng/mL Normal 8 Vitamin B6, Plasma 06/19/2020 [facility] Vitamin B6, Plasma 87.0 ng/mL High 2.1-21. 7 9 Vitamin B1 (Thiamine), Serum/Plasma, LC/MS/MS 06/19/2020 [facility] Vitamin B1 (Thiamine), Serum/Plasma, LC/MS/MS 13 nmol/L 8-30 10 Iron, Tibc And Ferritin Panel 06/19/2020 [facility] Iron, Total 43 g/dL Low 45-160 Iron Binding Capacity 359 mcg/dL(calc) Normal 250-450 % Saturation 12 %(calc) Low 16-45 Ferritin 38 ng/mL Normal 16-232 Comprehensive Metabolic Panel W/O Egfr 06/19/2020 [facility] Glucose 142 mg/dL High 65-99 11 Urea Nitrogen (BUN) 14 mg/dL Normal 7-25 Creatinine 0.92 mg/dL Normal 0.50-1. 05 12 BUN/Creatinine Ratio NOT APPLICABLE (calc) 6-22 Sodium 139 mmol/L Normal 135-146 Potassium 3.4 mmol/L Low 3.5-5.3 Chloride 101 mmol/L Normal 98-110 Carbon Dioxide 31 mmol/L Normal 20-32 Calcium 8.8 mg/dL Normal 8.6-10. 4 Protein, Total 6.7 g/dL Normal 6.1-8.1 Albumin 4.2 g/dL Normal 3.6-5.1 Globulin 2.5 g/dL(calc) Normal 1.9-3.7 Albumin/Globuli n Ratio 1.7 (calc) Normal 1.0-2.5 Bilirubin, Total 0.8 mg/dL Normal 0.2-1 .2 Alkaline Phosphatase 96 U/L Normal 37-153 Ast 17 U/L Normal 10-35 Alt 14 U/L Normal 6-29 1 This test was develo ped and its analytical performance characteristics have been determined by [employer]. It has not been cleared or approved by the FDA. This assay has been validated pursuant to the CLIA regulations and is used for clinical purposes. 2 Reference range: <10 0 Desirable range <100 mg/dL for primary prevention; <70 mg/dL for patients with CHD or diabetic patients with > or = 2 CHD risk factors. LDL-C is now calculated using the Roman-Conklin calculation, which is a validated novel method providing better accuracy than the Friedewald equation in the estimation of LDL-C. Roman SS et al. PJ. 2013;310(04): 0443-9639 (http://education.[employer]/faq/QRK791) 3 For patients with di abetes plus 1 major ASCVD risk factor, treating to a non-HDL-C goal of <100 mg/dL (LDL-C of <70 mg/dL) is considered a therapeutic option. 4 This test was develo ped and its analytical performance characteristics have been determined by [employer]. It has not been cleared or approved by the FDA. This assay has been validated pursuant to the CLIA regulations and is used for clinical purposes. 5 This test was develo ped and its analytical performance characteristics have been determined by [employer] [place], [place]. It has not been cleared or approved by the U.S. Food and Drug Administration. This assay has been validated pursuant to the CLIA regulations and is used for clinical purposes. 6 Vitamin D Status 25- OH Vitamin D: Deficiency: <20 ng/mL Insufficiency: 20 - 29 ng/mL Optimal: > or = 30 ng/mL For 25-OH Vitamin D testing on patients on D2-supplementation and patients for whom quantitation of D2 and D3 fractions is required, the QuestAssureD(TM) 25-OH VIT D, (D2,D3), LC/MS/MS is recommended: order code 37105 (patients >2yrs). See Note 1 Note 1 For additional information, please refer to http://education.[employer]/faq/BOJ092 (This link is being provided for informational/ educational purposes only.) 7 Vitamin supplementat ion within 24 hours prior to blood draw may affect the accuracy of results. This test was developed and its analytical performance characteristics have been determined by [employer]. It has not been cleared or approved by the FDA. This assay has been validated pursuant to the CLIA regulations and is used for clinical purposes. 8 Reference Range Low: <3.4 Borderline: 3.4-5.4 Normal: >5.4 9 Vitamin supplementat ion within 24 hours prior to blood draw may affect the accuracy of results. This test was developed and its analytical performance characteristics have been determined by [employer]. It has not been cleared or approved by the FDA. This assay has been validated pursuant to the CLIA regulations and is used for clinical purposes. 10 Vitamin supplementat ion within 24 hours prior to blood draw may affect the accuracy of results. This test was developed and its analytical performance characteristics have been determined by [employer]. It has not been cleared or approved by the FDA. This assay has been validated pursuant to the CLIA regulations and is used for clinical purposes. 11 Fasting reference in terval For someone without known diabetes, a glucose value >125 mg/dL indicates that they may have diabetes and this should be confirmed with a follow-up test. 12 For patients >49 yea rs of age, the reference limit for Creatinine is approximately 13% higher for people identified as -Maltese. 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 E87.6 Hypokalemia Assessments Date Code Description Provider 07/03/2020 E61.1 Iron deficiency Oscar partida MD 07/03/2020 E55.9 Vitamin D deficiency, unspec ified Oscar Bennett MD 07/03/2020 E53.8 Deficiency of other specifie d B group vitamins Oscar Bennett MD 07/03/2020 E60 Dietary zinc deficiency Nicole Bennett MD 07/03/2020 R53.83 Other fatigue Oscar chacon MD 07/03/2020 Z91.018 Allergy to other foods Claudia Bennett MD 07/03/2020 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 Nicole Bennett MD 07/03/2020 E87.6 Hypokalemia Oscar Bennett MD Plan of Treatment 07/03/2020 - Oscar Bennett MD* E61.1 Iron deficiency * E55.9 Vitamin D deficiency, unspecified * E53.8 Deficiency of other specified B group vitamins * E60 Dietary zinc deficiency * R53.83 Other fatigue * Z91.018 Allergy to other foods * 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 These will be corrected with appropriate supplements. With regards to iron deficiency she states that she has had recentcologuard testing the results of which are not available to me at this time and which she will havefaxed to the office for record keeping purposes. I have still told her that I would recommend that she sees a GI doctor and get a colonoscopy especially given the change in her bowel habits over the past 1 year with increasing constipation. She will make an appointment on her own and will have the records forwarded to the office after she is seen. Her labs also consistent with hypervitaminosis B6. She will look for dietary sources of excessive B6 ingestion and will also review all her supplements to see if any of them contain B6. For treatment of osteoporosis in the setting of vitamin D deficiency and borderline serum calcium I have recommended vitamin D and calcium supplements. I did offerher treatment with bisphosphonates which she declined. I will continue to monitor her bone mineral density and will recommend intervention as needed based on the results. I will have Awa return to the clinic in about 2 months to recheck her labs especially her fasting glucose levels as her currentglucose level is slightly elevated but this was not a fasting sample. She is aware that she may contact me at any time if she has any questions or concerns. * Recommendations:* Please return to the clinic in about 2 months for follow-up of symptoms, labs and vitamin deficiencies Please be sure to review your medication list carefully as there have been some changes made today in order to familiarize yourself with the changes. You will need to have fasting blood work done approximately 1 week before your next visit as noted below. Do not hesitate to contact me if you have any questions or concerns regarding today's visit or any other medical issues. Thank you for coming in today, it is a pleasure to be of service. Functional Status Description No Information Available Mental Status Description No Information Available Referrals Refer to Reason for Referral Status Appt Dileep Larkin MD Drug induced osteoporosis Created 0 [address] [place] [address] [phone]
--- OUTSIDE RECORDS SUMMARY | 2024-11-13 11:05 | XMS_ITS | Encounter Summary ---
Author Organization [facility] Address [address] [place] [address]. [place] [address] Care Team Providers Care Varnish Maker Helper Name Role Phone Eleni Nguyen DO Primary Care Provider [phone] Gladys Luis RN Unavailable [phone] Eleni Nguyen DO Primary Care Provider [phone] Encounter Details Date Type Department Care Team (Late st Contact Info) Description 10/04/2016 [facility] [place] [facility] [address] [address] Nette Levy MD [address] [place] [id number] Social History Tobacco Use Types Packs/Day Years Used Date Smoking Tobacco: Never Smokeless Tobacco: Never Alcohol Use Standard Drinks/Week Comments No 0 (1 standard drink = 0.6 oz pur e alcohol) Comments No Sex and Gender Information Value Date Recorded Sex Assigned at Female 04/03/2019 2:35 PM FIELD UNDERWRITER Legal Sex Female 3:28 AM FIELD UNDERWRITER Gender Identity Female 04/03/2019 2:35 PM FIELD UNDERWRITER Sexual Orientation Not on file documented as of this encounter Plan of Treatment Not on file documented as of this encounter Visit Diagnoses Not on filedocumented in this encounter Care Teams Varnish Maker Helper Relationship Specialty Start Date End Date Eleni Nguyen DO PCP - General 02/27/14 06/20/24 Eleni Nguyen DO [address] [place] [address] PCP - General Cardiovascular Disease 06/21/24 Gladys Luis, RN Registered Nurse Otolaryngology 04/07/16 documented as of this encounter
--- OUTSIDE RECORDS SUMMARY | 2024-11-13 11:05 | XMS_ITS | Encounter Summary ---
Author Organization [facility] Address [address] [place] [address] Care Team Providers Care Manager Background Name Role Phone Eleni Nguyen DO Primary Care Provider [phone] Gladys Luis RN Unavailable [phone] Eleni Nguyen DO Primary Care Provider [phone] Encounter Details Date Type Department Care Team (Late st Contact Info) Description 11/19/2016 [facility] [place] [facility] Advice [facility] [address] [place] [address] Cristin Godfrey MD [address] [facility] [address] [place] [address] Social History Tobacco Use Types Packs/Day Years Used Date Smoking Tobacco: Never Smokeless Tobacco: Never Alcohol Use Standard Drinks/Week Comments No 0 (1 standard drink = 0.6 oz pur e alcohol) Comments No Sex and Gender Information Value Date Recorded Sex Assigned at Female 04/03/2019 2:35 PM PELLETIZER TENDER Legal Sex Female 3:28 AM PELLETIZER TENDER Gender Identity Female 04/03/2019 2:35 PM PELLETIZER TENDER Sexual Orientation Not on file documented as of this encounter Plan of Treatment Not on file documented as of this encounter Visit Diagnoses Not on filedocumented in this encounter Care Teams Manager Background Relationship Specialty Start Date End Date Eleni Nguyen DO PCP - General 02/27/14 06/20/24 Eleni Nguyen, [address] [place] [address] [place] [address] PCP - General Cardiovascular Disease 06/21/24 Gladys Luis, RN Registered Nurse Otolaryngology 04/07/16 documented as of this encounter
--- NOTE | 2024-11-13 11:50 | ED.GENADULT ---
HPI - General Adult General Date Seen: 11/13/24 Chief complaint: Arrhythmia/Palpitations Stated complaint: thinks has low potassium Time Seen by Provider: 11/13/24 11:33 Source: patient Mode of arrival: ambulatory Limitations: no limitations History of Present Illness HPI narrative: Patient is a 64-year-old female presenting to the emergency department for symptoms of palpitations, nausea, lightheadedness. She states the symptoms have been intermittent over the past few weeks but got worse today. She came in for concern of low potassium and anemia. She states she was recently diagnosed with low potassium and anemia and was supposed to be getting iron transfusions. She got 2 of the 5 but never got the last 3. She admits he was getting tired of dealing with this so in the other 3 appointments never got scheduled she just never called to figure out what happened. She states the symptoms have been intermittent for the past few weeks but felt like today was worse. She had this palpitations nausea and lightheadedness that have been getting better. She still does mildly lightheaded but the other symptoms are gone. Did not have any chest pain and shortness of breath associated with this. No associated abdominal pain, dysuria, diarrhea, constipation, vision changes, headache, weakness, numbness. Was previously emergency department for similar symptoms normal she had low hemoglobin did not meet criteria for transfusion. No other concerns noted at this time. Related Data Previous Rx's ?Medication ?Instructions ?Recorded ondansetron 4 mg disintegrating 4 mg PO Q6H #20 tabs 11/13/24 tablet ondansetron 4 mg disintegrating 4 mg PO Q6H #20 tabs 11/13/24 tablet Review of Systems Status of ROS: Reports: 10 or more systems reviewed and unremarkable except as noted in History and below Exam Narrative: Exam Narrative: Const: Well-nourished, Well-developed, in mild distress Eyes: PERRL, no conjunctival injection, and symmetrical lids HENT: Atraumatic external nose and ears. Moist mucous membranes. Neck: Symmetric, trachea midline, No thyromegaly. CVS: RRR, No murmurs or gallops. Peripheral pulses 2+ and equal in all extremities RESP: Unlabored respiratory effort. Clear to auscultation bilaterally. GI: Nontender/Nondistended, No rebound or guarding. MSK:Extremities w/o deformity, Normal Active ROM Skin: Warm, Dry. No rashes or lesions. Neuro: Normal Muscle tone, No focal neurological deficits. Psych: Awake, Alert, & Oriented x3. Appropriate mood and affect. Const: Vital Signs, click to edit/add: Vital Signs - 24 hr 11/13/24 11:14 11/13/24 11:35 11/13/24 11:37 Temperature 96.7 F L Pulse Rate 101 H 86 Pulse Rate [Pulse Oximeter] 96 Respiratory Rate 20 16 Blood Pressure 120/72 Blood Pressure [Ri ght Upper Arm] 136/52 L Pulse Oximetry 98 98 98 Oxygen Delivery Me thod Room Air 11/13/24 11:45 11/13/24 11:47 11/13/24 12:00 Temperature Pulse Rate 95 98 84 Pulse Rate [Pulse Oximeter] Respiratory Rate 13 18 14 Blood Pressure 113/70 Blood Pressure [Ri ght Upper Arm] Pulse Oximetry 98 98 97 Oxygen Delivery Me thod 11/13/24 12:02 11/13/24 12:03 11/13/24 12:18 Temperature Pulse Rate 90 82 Pulse Rate [Pulse Oximeter] Respiratory Rate 18 16 23 Blood Pressure 118/70 Blood Pressure [Ri ght Upper Arm] Pulse Oximetry 97 98 Oxygen Delivery Me thod 11/13/24 12:19 Temperature Pulse Rate 91 Pulse Rate [Pulse Oximeter] Respiratory Rate 17 Blood Pressure 134/70 Blood Pressure [Ri ght Upper Arm] Pulse Oximetry 100 Oxygen Delivery Me thod Course Vital Signs Vital signs: Initial Vital Signs Temperature 96.7 F L 11/13/24 11:14 Temperature Source Temporal Artery Scan 11/13/24 11:14 Pulse Rate 96 11/13/24 11:14 Respiratory Rate 11/13/24 11:14 Blood Pressure 136/52 L 11/13/24 11:14 Blood Pressure Mean 80 11/13/24 11:14 Pulse Oximetry 98 11/13/24 11:14 Oxygen Delivery Method Room Air 11/13/24 11:14 Vital Signs Temperature 96.7 F L 11/13/24 11:14 Pulse Rate 96 11/13/24 11:14 Respiratory Rate 20 11/13/24 11:14 Blood Pressure 136/52 L 11/13/24 11:14 Pulse Oximetry 98 11/13/24 11:14 Oxygen Delivery Method Room Air 11/13/24 11:14 Temperature 96.7 F L 11/13/24 11:14 Pulse Rate 91 11/13/24 12:19 Respiratory Rate 17 11/13/24 12:19 Blood Pressure 134/70 11/13/24 12:19 Pulse Oximetry 100 11/13/24 12:19 Oxygen Delivery Method Room Air 11/13/24 11:14 Medical Decision Making MDM Narrative Medical decision making narrative: Patient is 64-year-old female presenting to emergency department for palpitations, nausea, lightheadedness. Symptoms seem to be improving significantly. The symptoms are an ongoing problem but were worse today. She has spoken to her primary care provider about the symptoms. At this time will check a CBC, BMP, viral swabs, iron panel, magnesium. Will also do EKG and troponin. Vital signs appears stable at this time. Lab work shows no acute concerning abnormalities. Hemoglobin is 10.1. Reviewing epic her most recent hemoglobin there was 10.3. In September was down to 6.9 and 7.1. She does appear to have an iron deficiency anemia. Overall she is feeling better. On my review vital signs are stable throughout time in in the emergency department. Oximetry stayed in the mid to high 90s. bottom buffer showed no concerning arrhythmias. She was initially tachycardic but that has since improved. I do believe she is safe for discharge. Will prescribe her Zofran for her nausea. Lab Data Labs: Lab Results 11/13/24 11/13/24 Range/Units 11:35 11:46 WBC 6.26 (4.50-11.00) K/uL RBC 4.50 (4.00-5.20) m/uL Hgb 10.1 L (12.0-16.0) gm/dL Hct 34.0 (33.0-51.0) % MCV 76 L (80-100) fL MCH 22 L (26-34) pg MCHC 30 L (32-36) gm/dL RDW Coeff of Jenny 25.2 H (11.5-15.5) % Plt Count 263 (140-440) K/uL Neut % (Auto) 93.8 H (42.0-72.0) % Lymph % (Auto) 4.8 L (20-44) % Beadle % (Auto) 1.1 (0.0-11.0) % Eos % (Auto) 0.0 (0.0-7.0) % Baso % (Auto) 0.3 (0.0-3.0) % Neut # (Auto) 5.90 (1.7-7.0) K/uL Lymph # (Auto) 0.30 L (0.90-2.90) K/uL Beadle # (Auto) 0.10 (0.00-0.90) K/UL Eos # (Auto) 0.00 (0.00-0.50) K/uL Baso # (Auto) 0.02 (0.00-0.30) K/uL Abs Immat Gran (auto) 0.00 (0.00-0.30) K/uL Imm/Tot Granulo (auto) 0.0 % Sodium 140 (135-149) mmol/L Potassium 4.2 (3.6-5.1) mmol/L Chloride 106 (96-114) mmol/L Carbon Dioxide 29 (20-32) mmol/L Anion Gap 5 L (7-15) mEq/L BUN 14 (7-30) mg/dL Creatinine 0.8 (0.5-1.5) mg/dL Estimated Creat Clear 48.25 Estimated GFR 83 ml/min Glucose 140 H (60-115) mg/dL Calcium 9.0 (8.4-10.6) mg/dL Magnesium 2.2 (1.5-2.6) mg/dL Iron 36 L (37-170) ug/dL TIBC 334 (265-497) ug/dL % Saturation 11 L (20-50) % SARS-CoV-2 (PCR) Negative SARS-CoV-2 (Negative) Influenza Type A (PCR) Negative PCR FLU A (Negative) Influenza Type B (PCR) Negative PCR FLU B (Negative) RSV (PCR) Negative PCR RSV (Negative) POC Troponin I 0.00 L (0.01-0.04) ng/ml ECG Data Attestation: I personally reviewed and interpreted this ECG as follows: Prior ECG tracings: not available for review Interpretation: Normal sinus rhythm with a rate of 86 beats per minute, normal intervals, normal axis, no ST or T-wave abnormalities. Discharge Plan Discharge Clinical Impression: Palpitations Anemia Qualifiers: Anemia type: iron deficiency Iron deficiency anemia type: unspecified iron deficiency Qualified Code(s): D50.9 - Iron deficiency anemia, unspecified Patient Disposition: Home, Self-Care Condition: Stable Instructions: Anemia (ED) Additional Instructions: Your hemoglobin appears stable to new most recent lab work. Your potassium within normal limits. Rest of your lab work shows no concerning findings. You do appear to have iron deficiency anemia. Do recommend close follow-up with the primary care provider. Take the Zofran as needed for nausea. Return for new or worsening symptoms. Prescriptions: New ondansetron 4 mg tablet,disintegrating 4 mg PO Q6H Qty: 20 0RF ondansetron 4 mg tablet,disintegrating 4 mg PO Q6H Qty: 20 0RF Follow Up/Referrals: Eleni Nguyen [Primary Care Provider, Internal Medicine] Stand Alone Forms: Ubitricity Info Instructions
[2024-11-13 12:00] LABS: Troponin, Point-of-Care* 0.00 ng/ml (0.01-0.04)
[2024-11-13 12:04] LABS: Hematocrit 34.0 % (33.0-51.0); Hemoglobin* 10.1 gm/dL (12.0-16.0); Immature Granulocytes Abs Auto 0.00 K/uL (0.00-0.30); Immature Granulocytes Pct Auto 0.0 %; Lymphocytes Absolute Auto 0.30 K/uL (0.90-2.90); Mean Corpuscular HGB Conc 30 gm/dL (32-36); Mean Corpuscular Hemoglobin 22 pg (26-34); Mean Corpuscular Volume 76 fL (80-100); RDW Coefficient of Variation % 25.2 % (11.5-15.5); Red Blood Count 4.50 m/uL (4.00-5.20); White Blood Count* 6.26 K/uL (4.50-11.00)
[2024-11-13 12:11] LABS: Slide Review Reflex No
[2024-11-13 12:19] LABS: Chloride* 106 mmol/L (96-114); Potassium* 4.2 mmol/L (3.6-5.1); Sodium* 140 mmol/L (135-149)
[2024-11-13 12:22] LABS: Anion Gap 5 mEq/L (7-15); Blood Urea Nitrogen* 14 mg/dL (7-30); Calcium* 9.0 mg/dL (8.4-10.6); Carbon Dioxide* 29 mmol/L (20-32); Creatinine* 0.8 mg/dL (0.5-1.5); Est. Creatinine Clearance* 48.25; Estimated Glomerular Filt Rate 83 ml/min; Glucose* 140 mg/dL (60-115)
[2024-11-13 12:44] LABS: Iron* 36 ug/dL (37-170)
[2024-11-13 12:47] LABS: PCR FLU A Negative PCR FLU A (Negative); PCR FLU B Negative PCR FLU B (Negative); PCR RSV Negative PCR RSV (Negative); SARS PCR* Negative SARS-CoV-2 (Negative)
[2024-11-13 12:53] LABS: Percent Iron Saturation 11 % (20-50); Total Iron Binding Capacity 334 ug/dL (265-497)
== END 2024-11-13 13:41 | disposition home or self-care (01) ==
PROVIDERS: Emergency Provider Student in an Organized Health Care Education/Training Program; PCP Internal Medicine
DX: R00.2 Palpitations (principal); D64.9 Anemia, unspecified; R11.0 Nausea; R42 Dizziness and giddiness
CPT/HCPCS: 36415; 80048; 83540; 83550; 83735; 84484; 85025; 87631; 93005; 99284

== ENCOUNTER 2024-12-03 10:16 | Outpatient (CLI) | payer MEDICARE, MEDICAID, SELFPAY ==
--- NOTE | 2024-12-03 10:57 | P.ANES_ITS ---
Anesthesia Charges Start Date/Time Anesthesia Start Date: 12/03/24 Anesthesia Start Time: 10:55 Stop Date/Time Anesthesia Stop Date: 12/03/24 Anesthesia Stop Time: 11:16 Coding CPT Codes CPT Codes: ANES UPR GI NDSC PX NOS - 05694 ([id number]) P2 - PATIENT W/MILD SYST DISEASE, QK - RN TRANSITION 2-4 CNCRNT ANES PROC, QX - HRIS COORDINATOR SVC W/ MD MED DIRECTION
--- NOTE | 2024-12-03 10:57 | W.ANESCHARGE ---
Anesthesia Charges Start Date/Time Anesthesia Start Date: 12/03/24 Anesthesia Start Time: 10:55 Stop Date/Time Anesthesia Stop Date: 12/03/24 Anesthesia Stop Time: 11:16 Coding CPT Codes CPT Codes: ANES UPR GI NDSC PX NOS - 64996 ([id number]) P2 - PATIENT W/MILD SYST DISEASE, QK - CLOTH DYEING RANGE TENDER 2-4 CNCRNT ANES PROC, QX - SUPERVISOR LIME SVC W/ MD MED DIRECTION
--- NOTE | 2024-12-03 11:20 | P.ANES_ITS ---
Anesthesia Charges Start Date/Time Anesthesia Start Date: 12/03/24 Anesthesia Start Time: 10:55 Stop Date/Time Anesthesia Stop Date: 12/03/24 Anesthesia Stop Time: 11:16 Coding CPT Codes CPT Codes: ANES UPR GI NDSC PX NOS - [id number] ([id number]) P2 - PATIENT W/MILD SYST DISEASE, QK - HOME CARE NURSE 2-4 CNCRNT ANES PROC, QX - SALOON KEEPER SVC W/ MD MED DIRECTION
--- NOTE | 2024-12-03 11:20 | W.ANESCHARGE ---
Anesthesia Charges Start Date/Time Anesthesia Start Date: 12/03/24 Anesthesia Start Time: 10:55 Stop Date/Time Anesthesia Stop Date: 12/03/24 Anesthesia Stop Time: 11:16 Coding CPT Codes CPT Codes: ANES UPR GI NDSC PX NOS - 71003 ([id number]) P2 - PATIENT W/MILD SYST DISEASE, QK - GROUP ACTIVITIES AIDE 2-4 CNCRNT ANES PROC, QX - RESIDENTIAL LEASING AGENT SVC W/ MD MED DIRECTION
== END 2024-12-03 10:17 | disposition home or self-care (01) ==
LOC: OP CLINIC 10:18
PROVIDERS: PCP Internal Medicine; Visit Provider Surgery
DX: D50.9 Iron deficiency anemia, unspecified (principal); K31.89 Other diseases of stomach and duodenum
CPT/HCPCS: 00731; 43239; 88305; J2405; J2704; J3490

== ENCOUNTER 2025-02-11 08:36 | Outpatient (CLI) | payer MEDICARE, MEDICAID, SELFPAY ==
--- NOTE | 2025-02-11 10:16 | P.ANES_ITS ---
Anesthesia Charges Start Date/Time Anesthesia Start Date: 02/11/25 Anesthesia Start Time: 09:34 Stop Date/Time Anesthesia Stop Date: 02/11/25 Anesthesia Stop Time: 10:08 Coding CPT Codes CPT Codes: RADHA LWR INTST NDSC NOS - [id number] ([id number]) P2 - PATIENT W/MILD SYST DISEASE, QK - ENGINEERING ANALYST 2-4 CNCRNT ANES PROC, QX - COPY DIRECTOR SVC W/ MD MED DIRECTION
--- NOTE | 2025-02-11 10:16 | W.ANESCHARGE ---
Anesthesia Charges Start Date/Time Anesthesia Start Date: 02/11/25 Anesthesia Start Time: 09:34 Stop Date/Time Anesthesia Stop Date: 02/11/25 Anesthesia Stop Time: 10:08 Coding CPT Codes CPT Codes: RAHDA LWR INTST NDSC NOS - [id number] ([id number]) P2 - PATIENT W/MILD SYST DISEASE, QK - RESIDENTIAL SALES MANAGER 2-4 CNCRNT ANES PROC, QX - EDITOR SOUND SVC W/ MD MED DIRECTION
--- NOTE | 2025-02-11 10:39 | P.ANES_ITS ---
Anesthesia Charges Start Date/Time Anesthesia Start Date: 02/11/25 Anesthesia Start Time: 09:34 Stop Date/Time Anesthesia Stop Date: 02/11/25 Anesthesia Stop Time: 10:08 Coding CPT Codes CPT Codes: RADHA LWR INTST NDSC NOS - [id number] ([id number]) QK - COURSEWARE DEVELOPER 2-4 CNCRNT RADHA PROC, QX - IOS DEVELOPER SVC W/ MD MED DIRECTION, P2 - PATIENT W/MILD SYST DISEASE
--- NOTE | 2025-02-11 10:39 | W.ANESCHARGE ---
Anesthesia Charges Start Date/Time Anesthesia Start Date: 02/11/25 Anesthesia Start Time: 09:34 Stop Date/Time Anesthesia Stop Date: 02/11/25 Anesthesia Stop Time: 10:08 Coding CPT Codes CPT Codes: RADHA LWR INTST NDSC NOS - [id number] ([id number]) QK - DOWEL PIN MAN 2-4 CNCRNT RADHA PROC, QX - TEACHING MANAGER SVC W/ MD MED DIRECTION, P2 - PATIENT W/MILD SYST DISEASE
== END 2025-02-11 08:37 | disposition home or self-care (01) ==
LOC: OP CLINIC 08:36
PROVIDERS: PCP Internal Medicine; Visit Provider Surgery
DX: Z12.11 Encounter for screening for malignant neoplasm of colon (principal); Z80.0 Family history of malignant neoplasm of digestive organs; D12.0 Benign neoplasm of cecum; D12.2 Benign neoplasm of ascending colon; D12.3 Benign neoplasm of transverse colon
CPT/HCPCS: 00811; 45385; 88305; J2405; J2704